=== PATIENT | female | born 1955 | race Caucasian/White ===

== ENCOUNTER → 2018-02-15 15:12 | Outpatient (CLI) | payer OTHER, SELFPAY ==
--- NOTE | 2018-02-15 15:17 | RAD_ITS ---
STUDY: X-RAY - RIGHT KNEE REASON FOR EXAM: Female, 62 years old. Pain TECHNIQUE: 4 view(s) of the knee. COMPARISON: None. FINDINGS: Normal visualized distal femur. Normal visualized proximal tibia and fibula. Normal proximal tibiofibular articulation. There is mild degenerative arthrosis of the medial femorotibial compartment. There is mild degenerative arthrosis of the lateral femorotibial compartment. There is mild degenerative arthrosis of the patellofemoral articulation. The soft tissue structures are unremarkable. RAD/Knee 4 or More Views IMPRESSION: Degenerative arthrosis. Electronically Signed: Andrew Fung MD at 16:01 EDT , Service support ,
== END ==
PROVIDERS: Family Provider Family Medicine; PCP Family Medicine; Referring Provider Family Medicine; Visit Provider Family Medicine
DX: M23.300 Other meniscus derangements, unspecified lateral meniscus, right knee (principal)
CPT/HCPCS: 73564

== ENCOUNTER → 2018-02-22 16:01 | Outpatient (CLI) | payer OTHER, SELFPAY ==
--- NOTE | 2018-02-22 16:28 | BI_ITS ---
MAMMOGRAPHY - BILATERAL SCREENING REASON FOR EXAM: Female, 62 years old. Routine annual screening examination. PERTINENT HISTORY: Aunt with breast cancer. Remote left stereotactic breast biopsy. TECHNIQUE: Digital bilateral breast jose (3D mammographic acquisition) in the CC and MLO projections. 2-D mediolateral oblique (MLO) and craniocaudad (CC) views of both breasts were obtained. CAD: Full Field Digital Mammography with Computer Added Detection was performed. COMPARISON: Comparison is made with prior examination dated May 14, 2016. FINDINGS: Breast Composition: The breasts are heterogeneously dense, which may obscure small masses. There are no dominant masses or suspicious calcifications. A tissue clip marker is seen in the deep mid medial portion of the left breast. Stable small bilateral axillary lymph nodes. No other significant abnormalities are identified. There has been no significant change since the prior study. BI/SCREENING MAMM (CAD), BILAT IMPRESSION: Stable bilateral screening mammogram. Yearly follow-up mammogram recommended. (A) ASSESSMENT CATEGORY: BIRADS Category 2: Benign. A letter regarding these results will be sent to the patient by the facility within 30 days. Approximately 10% of breast cancers are not detected by mammography. A normal mammogram should not delay biopsy of a clinically suspicious abnormality. [id number] Electronically Signed: Huey Vizcaino MD at 13:19 EDT Tel [phone], Service support ,
== END ==
PROVIDERS: Family Provider Family Medicine; PCP Family Medicine; Visit Provider Family Medicine
DX: Z12.31 Encounter for screening mammogram for malignant neoplasm of breast (principal)
CPT/HCPCS: 77063; 77067

== ENCOUNTER → 2018-02-25 08:45 | Outpatient (CLI) | payer OTHER, SELFPAY ==
--- NOTE | 2018-02-25 09:10 | MRI_ITS ---
STUDY: MRI RIGHT KNEE REASON FOR EXAM: Female, 62 years old. Right knee pain. TECHNIQUE: Standardized fat and water weighted pulse sequences were obtained in all 3 orthogonal planes. COMPARISON: X-ray February 15, 2018 FINDINGS: There is medial meniscus tear of the posterior horn and body, series 3 images 33/42 through 36/42. There is diffuse, greater than 50% thickness articular cartilage loss of the medial femorotibial compartment. There is mild osteoarthritic spur formation of the medial knee compartment. Normal medial collateral ligamentous complex (MCL). Normal distal semimembranosus, gracilis and semitendinosus tendons. There is lateral meniscus tear of the posterior horn adjacent to the meniscal root, series 3 images 17/42 and 18/42. Normal hyaline cartilage of the lateral femorotibial compartment. Normal lateral femoral condyle and tibial plateau. Normal proximal tibiofibular articulation. Normal lateral collateral (fibular) ligament. Normal popliteus tendon. Normal biceps femoris tendon. Normal anterior cruciate ligament (ACL). Normal posterior cruciate ligament (PCL). Normal congruent patellofemoral articulation. Normal hyaline cartilage of the patellofemoral compartment. Normal medial and lateral patellar retinaculum. Normal quadriceps tendon. Normal patellar tendon. Normal Hoffa's fat pad. There is a small volume joint effusion. There is a 5.5 cm popliteal cyst. The soft tissues are unremarkable. The otherwise visualized osseous structures are unremarkable. MRI/Lower Ext Joint Only (Routine) IMPRESSION: Medial meniscus tear. Lateral meniscus tear. Degenerative changes of the medial compartment. Joint effusion. Electronically Signed: Abiodun Xiao MD at 10:55 EDT , Service support ,
== END ==
PROVIDERS: Family Provider Family Medicine; PCP Family Medicine; Referring Provider Family Medicine; Visit Provider Family Medicine
DX: M23.300 Other meniscus derangements, unspecified lateral meniscus, right knee (principal)
CPT/HCPCS: 73721

== ENCOUNTER 2018-03-01 06:50 | Day surgery (SDC) | payer OTHER, SELFPAY ==
[2018-03-01 07:09] VITALS: BP 129/65; PULSE 90; RESP 16; TEMP 36.2; O2SAT 94; BMI 36.6
--- NOTE | 2018-03-01 07:42 | H&P.OPEN ---
Past Medical/Surgical History - Planned Operation Planned Operative Procedure/s: COLONOSCOPY Date of Operative Procedure: 03/01/18 Permit Signed: No S.O.S: No Is This Patient Having a Total Joint: No - Previous Hospitalizations/Surgeries HX of Surgeries: LEFT FOOT/BUNIONECTOMY. TONSILS CHILD. COLONOSCOPY 2007. BREAST BIOPSY 2011/LEFT. DENTAL IMPLANTS. 2016 LEFT CATARACT Any Problems With Anesthesia: No You/Your Family Experience Fever (Hyperthermia) With Anes: No Cholinesterase deficiency: No - Cardiovascular Hx Chest Pain within Last 2 months: No Hx of Irregular Heartbeat and/or Afib: No Hx Heart Attack: No Hx Congestive Heart Failure: No Hx Rheumatic Fever: No Hx Hypertension: No Hx Internal Defibrillator: No Hx Pacemaker: No Hx Cardiac Catheterization: No Hx Cardiac Surgery/Stents/Etc.: No Hx Stress Test: Yes - OVER 5 YRS AGO HX Edema: No Hx Pain in Legs when Walking/Leg Cramps: Yes - OCCAS LEG CRAMPS - Respiratory Chronic Cough: No HX of Shortness of Breath: No Hoarseness: No Hx Chronic Obstructive Pulmonary Disease (COPD): No Hx Asthma: No Hx Emphysema: No Hx Sleep Apnea: Yes - CPAP 2010 CPAP: Yes BIPAP: No Hx Oxygen Use at Home: No Hx Respiratory Tract Infection/Cold (presently): No Result (for STOP score): Positive Hx Smoking: Yes - QUIT Smoking Status: Former smoker - Gastrointestinal Hx Gastroesophageal Reflux: Yes Controlled With Meds: Yes - OMERPAZOLE Hx Gastrointestinal Disorders: Yes - IBS Hx Gastrointestinal Bleed: No Hx Ulcer: No Hx Hiatal Hernia: No Difficulty Chewing/Swallowing: No Recent Onset of Swallowing Problems: No Special diet followed at home: No Hx Unplanned Weight Loss of 20#: No HX Unplanned Weight Gain of 20#: No - Neurological Hx Seizures: No HX Syncope/Blackout Spells/Unconsciousness: No Hx CVA/Stroke: No Hx Transient Ischemic Attacks (TIA): No Hx Multiple Sclerosis: No Hx Parkinson's Disease: No Hx Head/Neck Injury: No Hx Headaches: No Hx Back Injury/Pain: No Recent Onset of Speech Difficulty: No Restless Legs: No Does patient have nerve stimulator: No Patient instructed to have device shut off: No Rep notified?: No - Blood Disorder Hx Leukemia: No Bleeding Tendencies: No Hx Deep Vein Thrombosis: No Hx High Cholesterol: No Blood Transmitted Disease: No Hx Hepatitis: No Hx Cirrhosis: No Hx Anemia: No Hx Blood Disorders: No - Reproduction : No Is Patient Lactating: No Hx Hysterectomy: No Hx Tubal Ligation: No Are You Post Menopause: Yes - Genitourinary Hx Renal Disease: No - Musculoskeletal Hx Arthritis: Yes - MILD,KNEE Hx Rheumatoid Arthritis: No Hx Gout: No Recent Onset of an Orthopedic Problem: Yes - KNEE,11/2017 - Endocrine Hx Diabetes: No Thyroid Disease: No Hx Steroid Therapy: No - Psycho/Social Hx Substance Use: No Hx Alcohol Use: Yes - 1 GLASS/MONTH Hx Anxiety: Yes - ON MED Hx Depression: No Mental Illness: No Hx Dementia: No - Miscellaneous Hx Cancer: No Recent Exposure to Contagious Disease: No Active MRSA: No Hx of C-Diff: No Any Loose Teeth: No - IMPLANTS/PERMANENT Allergies adhesive tape Allergy (Verified 02/27/18 11:27) Rash hydrocodone [From Vicodin] Adverse Reaction (Verified 02/27/18 11:48) Vomiting - Discharge Is Pt Admitted From a Care Home, or a Usp: No Who Could Help: After D/C, Where Do you Plan to Go: Return Home - From the PAT History Number of Risk Factors: 4 - Physical Exam General: Alert, Oriented x3, Cooperative, No apparent distress Lungs: Normal air movement Cardiovascular: Regular rate Abdomen: Soft, Non Tender, Non-Distended Extremities: No clubbing, No cyanosis, No edema Neurological: Cranial nerves II-XII grossly intact Psych/Mental Status: Normal Affect Vital Signs Temp Pulse Resp BP Pulse Ox 97.1 F L 90 16 129/65 H 94 03/01/18 07:09 03/01/18 07:09 03/01/18 07:09 03/01/18 07:09 03/01/18 07:09 Oxygen Delivery Method Room Air Weight: 207 lb 0.225 oz Body Mass Index (BMI) 36.6 Assessment/Plan 62-year-old female for screening colonoscopy, previous colonoscopy in 2007 patient remembers being told 10 years unsure the exact results whether she had any polyps, denies any family history of colon cancer Surgery Risks - Colonoscopy I discussed with the patient the risks of the procedure: Yes Risks Include but are not Limited To: Risks include but are not limited to: Bleeding, perforation requiring further surgery, inability to complete colonoscopy requiring barium enema. Patient and her no further questions at this time.
--- NOTE | 2018-03-01 08:00 | COLBX_PTH ---
PATIENT: BRENNA JIN LOC: EN U#:[id number] AGE/SX: 62/F ROOM: RE03/01/[address]: Dr. Evon Payne MD : 1955 BED: DIS: 03/01/2018 SPEC #: [id number] RECD: 03/01/18 10:00 STATUS: SANDRO REJung #: [id number] ASIM: 03/01/18 08:[address]: Evon Payne DEPT: SURGICAL PATHOLOGY RECD BY: Junito Lozano ENTERED: 03/01/18 10:13 SP TYPE: COLON BX OTHR DR: Dr. Gelacio Kahn DO Tissues: A - Descending colon B - Sigmoid colon biopsy C - Sigmoid colon biopsy D - Rectum, NOS Procedures: Surgery Specimen Level IV HEADER OPERATION: Colonoscopy PRE-OP DIAGNOSIS: Screening TISSUE SUBMITTED: A - Biopsy of descending colon polyp, B - Biopsy of sigmoid lesion, C - Biopsy of sigmoid polyp, D - Biopsy of rectal polyp MICROSCOPIC DIAGNOSIS A. Descending colon polyp, biopsy: Tubular adenoma. Pigmented laden macrophages consistent with melanosis coli. B. Sigmoid lesion, biopsy: Hyperplastic polyp. Pigmented laden macrophages consistent with melanosis coli. C. Sigmoid polyp, biopsy: Hyperplastic polyp. Pigmented laden macrophages consistent with melanosis coli. D. Rectal polyp, biopsy: Hyperplastic polyp. Pigmented laden macrophages consistent with melanosis coli. SJ:joanna 03/02/18 MICROSCOPIC DESCRIPTION Slides are reviewed. GROSS DESCRIPTION A - Received in fixative is one container labeled with the patient's name and designated biopsy of descending colon polyp. The specimen consists of one irregular fragment of light harding soft tissue that measures 0.4 x 0.3 x 0.1 cm. The specimen is totally submitted in one cassette. B - Received in fixative is one container labeled with the patient's name and designated biopsy of sigmoid lesion. The specimen consists of two irregular fragments of light harding soft tissue that in aggregate measure 0.4 x 0.3 x 0.1 cm. The specimen is totally submitted in one cassette. C - Received in fixative is one container labeled with the patient's name and designated biopsy of sigmoid polyp. The specimen consists of multiple irregular fragments of light harding soft tissue that in aggregate measure 1 x 0.5 x 0.1 cm. The specimen is totally submitted in one cassette. D - Received in fixative is one container labeled with the patient's name and designated biopsy of rectal polyp. The specimen consists of multiple irregular fragments of light harding soft tissue that in aggregate measure 0.5 x 0.5 x 0.1 cm. The specimen is totally submitted in one cassette. / OVI:joanna 03/01/18 TC:1 CPT: 26430 x4
[2018-03-01 08:47] VITALS: BP 106/69; BP 129/65; PULSE 75; RESP 16; TEMP 36.2; O2SAT 98
[2018-03-01 08:50] VITALS: BP 115/66; BP 129/65; PULSE 67; RESP 16; O2SAT 96
--- NOTE | 2018-03-01 08:51 | OP.ENDO_ITS ---
Patient Name: Francia Lopez Procedure Date: 03/01/2018 7:36 AM Date of : 1955 Age: 62 Procedure: Colonoscopy Indications: Screening for colorectal malignant neoplasm Providers: Evon Payne MD Referring MD: Evon Payne MD Medicines: Monitored Anesthesia Care Patient Profile: Last Colonoscopy: 10 years ago. Complications: No immediate complications. Procedure: Pre-Anesthesia Assessment: - Prior to the procedure, a History and Physical was performed, and patient medications and allergies were reviewed. The patient's tolerance of previous anesthesia was also reviewed. The risks and benefits of the procedure and the sedation options and risks were discussed with the patient. All questions were answered, and informed consent was obtained. Prior Anticoagulants: The patient has taken no previous anticoagulant or antiplatelet agents. ASA Grade Assessment: II - A patient with mild systemic disease. After reviewing the risks and benefits, the patient was deemed in satisfactory condition to undergo the procedure. After I obtained informed consent, the scope was passed under direct vision. Throughout the procedure, the patient's blood pressure, pulse, and oxygen saturations were monitored continuously. The pediatric colonoscope was introduced through the anus and advanced to the cecum, identified by the appendiceal orifice, ileocecal valve and palpation. The colonoscopy was performed without difficulty. The patient tolerated the procedure well. The quality of the bowel preparation was good. Scope In: 7:56:02 AM Scope Withdrawal Time 0 hours 28 minutes 45 seconds Scope Out: 8:41:39 AM Total Procedure Duration Time 0 hours 45 minutes 37 seconds Findings: Three sessile polyps were found in the rectum, sigmoid colon and descending colon. The polyps were 3 to 5 mm in size. These polyps were removed with a cold biopsy forceps. There was also a flat lesion that was removed in sigmoid with cold forceps. Resection and retrieval were complete. Diverticula were found in the sigmoid colon and descending colon. The retroflexed view of the distal rectum and anal verge was normal and showed no anal or rectal abnormalities. The perianal and digital rectal examinations were normal. Impression: - Three 3 to 5 mm polyps in the rectum, in the sigmoid colon and in the descending colon & flat mucosal lesion in sigmoid, removed with a cold biopsy forceps. Resected and retrieved. - Diverticulosis in the sigmoid colon and in the descending colon. - The distal rectum and anal verge are normal on retroflexion view. Recommendation: - Discharge patient to home. - High fiber diet. - Continue present medications. - Await pathology results. - Repeat colonoscopy in 3 - 5 years for surveillance based on pathology results. Procedure Code(s): --- Professional --- 23739, Colonoscopy, flexible; with biopsy, single or multiple Diagnosis Code(s): --- Professional --- Z12.11, Encounter for screening for malignant neoplasm of colon K62.1, Rectal polyp D12.5, Benign neoplasm of sigmoid colon D12.4, Benign neoplasm of descending colon K57.30, Diverticulosis of large intestine without perforation or abscess without bleeding CPT copyright 2017 [employer]. All rights reserved. The codes documented in this report are preliminary and upon him coder review may be revised to meet current compliance requirements. MD Evon Hardy MD 03/01/2018 8:50:28 AM This report has been signed electronically. Number of Addenda: 0 Note Initiated On: 03/01/2018 7:36 AM
[2018-03-01 08:55] VITALS: BP 118/95; BP 129/65; PULSE 66; RESP 16; O2SAT 95
[2018-03-01 09:00] VITALS: BP 129/65; BP 135/75; PULSE 63; RESP 16; O2SAT 95
[2018-03-01 09:05] VITALS: BP 129/65; BP 137/73; PULSE 60; RESP 16; TEMP 36.4; O2SAT 95
== END 2018-03-01 09:33 | disposition home or self-care (01) ==
LOC: EN 06:51 → AC 06:52
PROVIDERS: Family Provider Family Medicine; PCP Family Medicine; Referring Provider Surgery; Visit Provider Surgery
PROC: 0DJD8ZZ Inspection of Lower Intestinal Tract, Via Natural or Artificial Opening Endoscopic (ICD-10-PCS; CPT 45378; principal; 2018-03-01 07:55)
DX: Z12.11 Encounter for screening for malignant neoplasm of colon (principal); D12.4 Benign neoplasm of descending colon; K63.5 Polyp of colon; K62.1 Rectal polyp; K57.30 Diverticulosis of large intestine without perforation or abscess without bleeding; G47.30 Sleep apnea, unspecified; K21.9 Gastro-esophageal reflux disease without esophagitis; K58.9 Irritable bowel syndrome, unspecified; M17.10 Unilateral primary osteoarthritis, unspecified knee; F41.9 Anxiety disorder, unspecified; Z78.0 Asymptomatic menopausal state; Z79.899 Other long term (current) drug therapy; Z87.891 Personal history of nicotine dependence
CPT/HCPCS: 45380; 88305; J7120

== ENCOUNTER → 2020-03-26 12:27 | Outpatient (CLI) | payer MEDICARE, OTHER, SELFPAY ==
[2020-03-26 15:42] LABS: Vitamin D,25 Hydroxy 24.4 ng/mL
[2020-03-26 15:44] LABS: Albumin, Serum 3.7 g/dL (3.2-5.0); BUN 15 mg/dL (7-18); Calcium,Total 8.8 mg/dL (8.5-10.1); Chloride 105 mmol/L (98-107); Creatinine, Serum 0.88 mg/dL (0.55-1.02); EST Glomerular Filtration Rate 68 mL/min (>60); Est Glom Filt Rate - Afr Amer 82 mL/min (>60); Glucose 70 mg/dL (74-106); Magnesium 2.1 mg/dL (1.6-2.6); Phosphorus 2.5 mg/dL (2.5-4.9); Sodium Level 138 mmol/L (136-145)
== END ==
PROVIDERS: PCP Family Medicine; Referring Provider Student in an Organized Health Care Education/Training Program; Visit Provider Student in an Organized Health Care Education/Training Program
DX: M81.0 Age-related osteoporosis without current pathological fracture (principal)
CPT/HCPCS: 36415; 80069; 82306; 83735

== ENCOUNTER 2020-10-22 12:00 | Outpatient (RCR) | payer MEDICARE, OTHER, SELFPAY ==
--- NOTE | 2020-09-18 12:42 | HP.PTEVAL_ITS ---
Patient's Visit Information BRENNA JIN is a 65 year old F referred to Physical Therapy by Dr. Paul Harding MD with a diagnosis of L knee OA. Date of Evaluation: 09/18/20 Physical Therapist: Francis Sorto, DPT, OCS, CSCS - Visit Plan Frequency: 2-3x /Week Duration: 4-6 Weeks Plan: 2-3x/week for 4-6 weeks for water therapy for... 1. LE and core strength focussing hip ext adn abd. 2. stretch quads and ITB. 3. CV/calorie burning ex. Progress all to I as [employer] member with list as tolerates. - Subjective L knee started hurting two weeks ago. H/O R knee partial replacement last November. Things were good. 2 weeks ago got up on Tuesday and L knee hurt without reason. Does lift weights in her basement for her knee. No MRI, had xray which showed OA. Doctor gave an injection last and it really helped almost 100%. Still gets pain every now and then trasniently. Sleeps OK since injection but was up prior. Does not do alot in her day, treis to clean and lift in basement. Did a lot of volunteer prior to covid. Both hips hurt to walk, may need bursectomy. Has had PT in the past. Gained 8 #. avoids getting down on floor due to knees. has steps and sometimes does one at a time. - Pain L knee Pain Intensity (Out of 10): 0 Pain Intensity Range: 0, 6 Comment: 6 prior to injection. - Objective L medial knee minimally tender. Valgus at both knees in posture. Walsk normal without antalgia today. steps reciprocal today with one rail. Trasnfers I. 0- 110 L knee aROM, R knee is 0-120. SLR B without lag. no pain. quads adn ITB mod tight B, HS are good at 0 90/90 test. ankel and hip AROM WFL. reflexes 2/3 B patella and achilles. Sensation LE WNL tog ross lgiht touch. Strength quad 4-, HS 4, hip abd and ext 3+, flexion 4-, andkles 4+. Tender over gluts but not specifically on trochanteric bursa area R >L - Goals Goal 1:: Pt I appropriate water ex to minimize problems with knee adn hips Goal Time Frame: 4-6 Weeks Goal 2:: L knee pain maitain 0/10 pain with sleeping adn home activities Goal Time Frame: 4-6 Weeks Goal 3:: LEFS scroe 42/80 Goal Time Frame: 4-6 Weeks - Rehabilitation Potential Physical Therapy Diagnosis: L knee OA Rehabilitation Potential: Fair - Anticipated Interventions Patient/Client Instruction: Educate patient on: Condition, Plan of Care For the Purpose of:: To decrease pain, To improve muscle performance and motor function Therapeutic Exercise to Include: Strength training, Flexibilty training, In an aquatic setting, Active ROM For the Purpose of:: To decrease pain, To improve muscle performance and motor function, To improve ability of physical actions for home/community/work/leisure, To improve gait and locomotor functions Thank you for the opportunity to evaluate your patient. For Medicare and Medicare HMO plans, please review the plan of care and approve it. It will need to be FAXED BACK to us at [phone] for Medicare purposes. For Medicare only, by signing this I certify the plan of care. Please let me know if there are questions or concerns regarding this plan of care. Physician Signature: Date:
--- NOTE | 2020-10-17 13:54 | HP.PTREVAL_ITS ---
Dr. Paul Harding MD, It has been my pleasure to treat BRENNA JIN over the last 8 visits for L knee OA. Please see the progress note below for an update on the physical therapy plan of care! Subjective: Injection is wearing off. Water treats her well. Still in pain walking into [employer], better with cart but has to sit and rest a lot. Pain in knee this week to 0 at rest and walking 4/10. B hips also hurt for her. Objective/Function: 0-118 AROM B knees, tightness felt in hips ext rotation and stetch shown to jeremy. Walking without antalgia today, steps reciprocal with one rail. Overall more painful as she thinks shot is wearing off but hips more problematic than knee. Appropriate to cotninue 2 more weeks in pool and then recheck Plan Plan: 2 more weeks in water to cotninue ROM, strecht and strengthen B hips and knees and progress to I with list as she is a member here. Back to doctor if not better in two weeks or if continues to worsen. Goals Goal 1:: Pt I appropriate water ex to minimize problems with knee adn hips Goal Time Frame: 4-6 Weeks Goal Progress: Progressing Goal 2:: L knee pain maitain 0/10 pain with sleeping adn home activities Goal Time Frame: 4-6 Weeks Goal Progress: to 3/10 Goal 3:: LEFS scroe 42/80 Goal Time Frame: 4-6 Weeks Goal Progress: Progressing Anticipated Interventions Patient/Client Instruction: Educate patient on: Condition, Plan of Care For the Purpose of:: To decrease pain, To improve muscle performance and motor function Therapeutic Exercise to Include: Strength training, Flexibilty training, In an aquatic setting, Active ROM For the Purpose of:: To decrease pain, To improve muscle performance and motor function, To improve ability of physical actions for home/c ommunity/work/leisure, To improve gait and locomotor functions Please do not hesitate to contact me at [phone] by phone or if you have questions or concerns regarding this new plan of care! Sincerely, Francis Sorto, DPT, OCS, CSCS
--- NOTE | 2020-12-19 12:35 | HP.PT.NRP ---
BRENNA JIN was seen in my office for initial evaluation on 09/18/20. The following Plan of Care was established for this patient: Initial Frequency: 2-3x /Week Initial Duration: 4-6 Weeks Patient/Client Instruction: Educate patient on: Condition, Plan of Care For the Purpose of:: To decrease pain, To improve muscle performance and motor function Therapeutic Exercise to Include: Strength training, Flexibilty training, In an aquatic setting, Active ROM For the Purpose of:: To decrease pain, To improve muscle performance and motor function, To improve ability of physical actions for home/community/work/leisure, To improve gait and locomotor functions This patient was last seen in our office 10/22/20. Pertinent comments regarding their Physical therapy will appear below: Pt seen 9 visits of water therapy. Cancelled last 4 stating she was having an MRI. She was 40% better at her last recheck. She did nto reschedule or attend any further visits. at this point, it has been nearly two months and I will disocntinue due to nonattendance. At this point I will be discontinuing this patient from physical therapy. I would be happy to see this patient again in the future if found appropriate by the physician. Thank you! Francis Sorto, DPT, OCS, CSCS Balance/Gait/Functional tests - Balance/Special Test Scores Lower Extremity Functional Score: 40
== END 2020-10-22 19:00 | disposition home or self-care (01) ==
LOC: PT 12:00
PROVIDERS: PCP Student in an Organized Health Care Education/Training Program; Referring Provider Specialist; Visit Provider Specialist
DX: M17.12 Unilateral primary osteoarthritis, left knee (principal); E68 Sequelae of hyperalimentation; E66.8 Other obesity
CPT/HCPCS: 97113; 97161; 97164

== ENCOUNTER → 2020-11-04 12:33 | Outpatient (CLI) | payer MEDICARE, OTHER, SELFPAY ==
[2020-11-04 14:51] LABS: Absolute Lymphocyte Count 1.41 X10^3/uL (0.83-4.51); Absolute Neutrophil Count 4.5 X10^3/uL (2.0-7.7); Basophil# 0.06 X10^3/uL; Basophil% 0.9 % (0-1); Eosinophil# 0.18 X10^3/uL; Eosinophils% 2.7 % (0-5); Hemoglobin 13.3 g/dL (12.0-15.0); Lymphocyte # 1.41 X10^3/ul (0.83-4.51); Lymphocyte % 21.4 % (19-41); Mean Corp Hgb Conc 31.7 g/dL (32-36); Mean Corpuscular Hgb 27.4 pg (27.0-32.0); Mean Corpuscular Volume 86.4 fL (81-99); Mean Platelet Vol. 11.6 fl (6.2-12.0); Monocyte# 0.47 X10^3/uL; Monocyte% 7.1 % (0-10); NRBC Flagged by Analyzer 0 % (0-5); Neutrophil # 4.45 X10^3/uL (2.7-7.7); Neutrophil % 67.4 % (47-70); Platelet Count 281 K/mm3 (150-450); RBC Distribution Width CV 14.9 % (11.6-14.6); RBC Distribution Width SD 47.1 fl (35.1-43.9); Red Blood Count 4.86 M/mm3 (4.2-5.4); White Blood Count 6.6 K/mm3 (4.4-11.0)
[2020-11-04 15:12] LABS: ALB/GLOB Ratio 1.1 RATIO (0.9-2.4); AST(SGOT) 17 U/L (15-37); Alanine Aminotransfer ALT/SGPT 32 U/L (13-56); Albumin, Serum 3.8 g/dL (3.2-5.0); Alkaline Phosphatase 82 U/L (45-117); Anion Gap 6 (5-15); BUN 17 mg/dL (7-18); BUN/Creat Ratio 19.6 RATIO (10-20); Calcium,Total 8.9 mg/dL (8.5-10.1); Chloride 106 mmol/L (98-107); Cholesterol 234 mg/dL (200); Creatinine, Serum 0.87 mg/dL (0.55-1.02); EST Glomerular Filtration Rate 69 mL/min (>60); Est Glom Filt Rate - Afr Amer 84 mL/min (>60); Globulin 3.6 g/dL (2.2-4.2); Glucose 87 mg/dL (74-106); High Density Lipoprotein 56 mg/dL; Potassium 4.3 mmol/L (3.5-5.1); Protein, Total 7.4 g/dL (6.4-8.2); Sodium Level 140 mmol/L (136-145); Triglycerides 253 mg/dL; Very Low Density Lipoprotein 51 mg/dL (5-40)
[2020-11-04 15:47] LABS: Hepatitis C Antibody Non-Reactive (Nonreactive)
== END ==
PROVIDERS: PCP Student in an Organized Health Care Education/Training Program; Referring Provider Student in an Organized Health Care Education/Training Program; Visit Provider Student in an Organized Health Care Education/Training Program
DX: R07.89 Other chest pain (principal)
CPT/HCPCS: 36415; 80053; 80061; 85025; 86803

== ENCOUNTER → 2021-01-20 11:36 | Outpatient (CLI) | payer MEDICARE, OTHER, SELFPAY ==
[2021-01-20 15:13] LABS: Hematocrit 38.9 % (37-47); Hemoglobin 12.5 g/dL (12.0-15.0); Mean Corp Hgb Conc 32.1 g/dL (32-36); Mean Platelet Vol. 11.3 fl (6.2-12.0); Platelet Count 283 K/mm3 (150-450); RBC Distribution Width CV 14.6 % (11.6-14.6); RBC Distribution Width SD 46.4 fl (35.1-43.9); Red Blood Count 4.47 M/mm3 (4.2-5.4); White Blood Count 8.5 K/mm3 (4.4-11.0)
[2021-01-20 15:32] LABS: Anion Gap 5 (5-15); BUN 13 mg/dL (7-18); Chloride 107 mmol/L (98-107); Creatinine, Serum 0.68 mg/dL (0.55-1.02); EST Glomerular Filtration Rate 91 mL/min (>60); Est Glom Filt Rate - Afr Amer 110 mL/min (>60); Glucose 77 mg/dL (74-106); Potassium 4.1 mmol/L (3.5-5.1); Sodium Level 139 mmol/L (136-145)
== END ==
PROVIDERS: PCP Student in an Organized Health Care Education/Training Program; Referring Provider Specialist; Visit Provider Specialist
DX: Z01.818 Encounter for other preprocedural examination (principal)
CPT/HCPCS: 36415; 80048; 85027

== ENCOUNTER → 2021-02-13 13:59 | Outpatient (CLI) | payer MEDICARE, OTHER, SELFPAY ==
--- NOTE | 2021-02-13 14:01 | VDLE_ITS ---
Reason For Study: Pain in left lower leg RIGHT LEFT CFV is compressible, spontaneous, phasic, GSV is normal. competent and demonstrates normal CFV is compressible, spontaneous, phasic, augmentation. competent, and demonstrates normal Procedure augmentation. This is a venous duplex using B-mode, color FV is compressible, spontaneous, phasic, flow and spectral Doppler. competent and demonstrates normal Exam performed in department. augmentation. A preliminary report was called and/or faxed POP V is compressible, spontaneous, phasic, to Blanca @ Ortho. Kirti @ PCP. competent and demonstrates normal augmentation. PTV is compressible. Acute deep vein thrombosis is noted in the left distal T/P Trunk, PeroV and SoleusV. VL/Venous Duplex US, Unilateral Interpretation Summary Acute deep vein thrombosis is noted in the left tibio-peroneal trunk. Acute malgorzata p vein thrombosis is noted in the left peroneal vein. Acute deep vein thrombosis is noted in the lef t soleus vein. The remainder of the left lower extremity deep venous system is patent and compress ible. Valvular competence appears intact within the proximal deep venous system on the left . The left great saphenous vein appears patent and compressible segmentally. Ordering Physician: Joo Still Referring Physician: Scott Dickson Performed By: Citlali Palumbo RVT
== END ==
PROVIDERS: PCP Student in an Organized Health Care Education/Training Program; Referring Provider Physician Assistant Surgical; Visit Provider Physician Assistant Surgical
DX: M79.662 Pain in left lower leg (principal)
CPT/HCPCS: 93971

== ENCOUNTER → 2021-03-04 11:02 | Outpatient (CLI) | payer MEDICARE, OTHER, SELFPAY ==
--- NOTE | 2021-03-04 11:15 | VDLE_ITS ---
Reason For Study: F/U DVT Procedure LEFT This is a venous duplex using B-mode, color GSV is normal. flow and spectral Doppler. CFV is compressible, spontaneous, phasic, Exam performed in department. competent, and demonstrates normal The exam was diagnostic. augmentation. A preliminary report was called and/or faxed FV is compressible, spontaneous, phasic, to Dr. Dickson @ [phone] @ 12:00 pm. competent and demonstrates normal augmentation. POP V is compressible, spontaneous, phasic, competent and demonstrates normal augmentation. T/P Trunk is compressible. PTV is compressible. PER V is still NONCOMPRESSIBLE and dilated. NONVASCULAR structure noted in LT POP FOSSA area measuring approx. 1.67 x 3.57cm. VL/Venous Duplex US, Unilateral Interpretation Summary Acute deep vein thrombosis is noted in the left peroneal vein. The remainder of the left lower extremity deep venous system is patent and compressible. Valvular competence ap pears intact within the proximal deep venous system on the left . The left great saphenous vein jose c ears patent and compressible segmentally. A non-vascular structure is noted in the left poplite al space, measuring 1.67 cm x 3.57 cm. This may represent a popliteal cyst. Clinical correlation is advised. Ordering Physician: Scott Dickson Referring Physician: Scott Dickson Performed By: Loreto Scales, EDELMIRA, RVT
== END ==
PROVIDERS: PCP Student in an Organized Health Care Education/Training Program; Referring Provider Student in an Organized Health Care Education/Training Program; Visit Provider Student in an Organized Health Care Education/Training Program
DX: I82.409 Acute embolism and thrombosis of unspecified deep veins of unspecified lower extremity (principal)
CPT/HCPCS: 93971

== ENCOUNTER → 2021-04-15 14:55 | Outpatient (CLI) | payer MEDICARE, OTHER, SELFPAY ==
--- NOTE | 2021-04-15 14:58 | BI_ITS ---
MAMMOGRAPHY - BILATERAL SCREENING REASON FOR EXAM: Female, 65 years old. Routine annual screening examination. PERTINENT HISTORY: Grandmother with breast cancer. Aunt with breast cancer. Prior left breast biopsy. TECHNIQUE: Digital bilateral breast juanito (3D mammographic acquisition) in the CC and MLO projections. 2-D mediolateral oblique (MLO) and craniocaudad (CC) views of both breasts were obtained. CAD: Full Field Digital Mammography with Computer Added Detection was performed. COMPARISON: Comparison is made with prior study dated 02/22/2018. FINDINGS: Breast Composition: The breasts are heterogeneously dense, which may obscure small masses. There are no dominant masses or suspicious calcifications. A tissue clip marker is once again seen in the deep central medial portion of the left breast. Stable benign-appearing bilateral axillary lymph nodes. No other significant abnormalities are identified. There has been no significant change since the prior study. BI/SCRN MAMM (CAD)W/JUANITO BILAT IMPRESSION: Stable bilateral screening mammogram. Yearly follow-up mammogram recommended. (A) ASSESSMENT CATEGORY: BIRADS Category 2: Benign. A letter regarding these results will be sent to the patient by the facility within 30 days. Approximately 10% of breast cancers are not detected by mammography. A normal mammogram should not delay biopsy of a clinically suspicious abnormality. [id number] Electronically Signed: Huey Vizcaino MD at 15:35 EST , Service support ,
== END ==
PROVIDERS: PCP Student in an Organized Health Care Education/Training Program; Referring Provider Student in an Organized Health Care Education/Training Program; Visit Provider Student in an Organized Health Care Education/Training Program
DX: Z12.31 Encounter for screening mammogram for malignant neoplasm of breast (principal)
CPT/HCPCS: 77063; 77067

== ENCOUNTER → 2021-04-16 07:14 | Outpatient (CLI) | payer MEDICARE, OTHER, SELFPAY ==
--- NOTE | 2021-04-16 07:16 | CT_ITS ---
STUDY: LOW DOSE CT LUNG CANCER SCREENING REASON FOR EXAM: Female, 65 years old. FORMER SMOKER RADIATION DOSAGE (If Supplied By Facility): CTDIvol = ( 14.11 ) mGy, DLP = ( 1234.24 ) mGycm TECHNIQUE: No contrast was administered. Low dose technique was utilized (average mAS-38 and kVp 120). 1.25 mm axial source images with a slice interval of 1.25-mm were reconstructed in lung windows. 2.5 mm axial source images with a slice interval of 2.5-mm were reconstructed in lung windows. 5.0 mm axial source images with a slice interval of 5.0-mm were reconstructed in soft tissue windows. Nodule measured using lung windows on PACS and/or independent workstation with automated measurement of minimum and maximum diameter. Nodule measurement reported as average diameter rounded to the nearest whole number. Growth is defined as an increase ins size of greater than 1.5 mm. COMPARISON: None. NODULES: No suspicious nodules are seen. Emphysema: Hyperinflation. Emphysematous changes. Mild degree of dependent atelectasis and/or scarring at the lung bases. Endobronchial lesion: Unremarkable Aorta: Minimal atherosclerotic plaque formation of the aortic arch. Coronary arteries: Minimal coronary artery calcification. Mediastinal nodes: Small benign-appearing mediastinal lymph nodes. Other chest and abdominal findings: CT/Low Dose CT Lung Screening IMPRESSION: Lung-RADS category 2 - Continue annual screening with LDCT in 12 months. IMPORTANT NOTES FOR USE: ACR Lung-RADS Version 1.1 Assessment Categories Release Date: 2018 Category: Coded 0-4 bases on nodule(s) with highest degree of suspicion. Negative screen is defined as categories 1 and 2; a positive screen is defined as categories 3 and 4. Category 3 and 4A nodules that are unchanged on interval CT should be coded as category 2, and individuals returned to screening in 12 months. Category 4X: Category 3 or 4 nodules with additional imaging findings that increase the suspicion of lung cancer, such as spiculation, GGN that doubles in size in 1 year, enlarged lymph notes, etc. Category Modifiers: S (significant finding unrelated to lung cancer) Electronically Signed: Huey Vizcaino MD at 10:34 EST , Service support ,
--- NOTE | 2021-04-16 07:24 | CT_ITS ---
STUDY: CT ABDOMEN AND PELVIS WITH CONTRAST REASON FOR EXAM: Female, 65 years old. EPIGASTRIC/ABD PAIN RADIATION DOSAGE (If Supplied By Facility): CTDIvol = ( 14.11 ) mGy, DLP = ( 1234.24 ) mGycm TECHNIQUE: Transaxial images were obtained from the dome of the diaphragm to the symphysis pubis without oral contrast. IV 100mL Isovue-370 was administered. Sagittal and coronal images were reconstructed. Individualized dose optimization techniques were used for this CT. COMPARISON: None. FINDINGS: Minimal degree of dependent bibasilar atelectasis. The visualized portions of the heart are within normal limits. There is decreased attenuation of the liver consistent with steatosis. Normal gallbladder and extrahepatic biliary system. Normal spleen. Normal pancreas. Normal bilateral adrenal glands. Normal right kidney. Normal left kidney. There is a small hiatal hernia. Normal small intestine. There are multiple colonic diverticula consistent with diverticulosis. The appendix is visualized and appears normal. There is scattered atherosclerotic calcification of the abdominal aorta, without a demonstrated aneurysm. Normal inferior vena cava. Normal retroperitoneum. Normal urinary bladder. There is a small umbilical hernia containing fat. Small left inguinal hernia containing There are diffuse degenerative changes of the visualized lumbar spine. CT/Abdomen/Pelvis WITH Contrast IMPRESSION: Fatty infiltration of the liver. Scattered sigmoid diverticula. Small umbilical hernia and left inguinal hernia containing fat. Electronically Signed: Huey Vizcaino MD at 10:24 EST , Service support ,
== END ==
PROVIDERS: PCP Student in an Organized Health Care Education/Training Program; Referring Provider Student in an Organized Health Care Education/Training Program; Visit Provider Student in an Organized Health Care Education/Training Program
DX: Z87.891 Personal history of nicotine dependence (principal)
CPT/HCPCS: 71271; 74177; Q9967

== ENCOUNTER 2021-07-09 14:00 | Outpatient (RCR) | payer MEDICARE, OTHER, SELFPAY ==
--- NOTE | 2021-06-01 15:20 | HP.PTEVAL ---
Patient's Visit Information BRENNA JIN is a 66 year old F referred to Physical Therapy by Dr. Paul Harding MD with a diagnosis of Bilateral Hip Bursitis. Date of Evaluation: 06/01/21 Physical Therapist: Jacquie Wynn DPT - Visit Plan Frequency: 2-3x /Week Duration: 3 Weeks Plan: Aquatic Therapy: Focus on LE and core strength/stabilization - Subjective Both hips are bothering her since 2009- she has had x-rays and been to specialists and they think she is okay. She has had injections and PT (aquatic) which helped a little bit. She has had a right partial knee replacement and left meniscal clean out and ended up with blood clots. The hips have just progressively gotten worse. She has some arthritis and he wants to send her to PT. She is going to [facility] [place] at the end of May- but she is worried about how much walking she is going to have to do. She is hopes to have some more injections or Cortisone to get her through the trip. She has had an MRI but is waiting for the results. She is having bilateral hip pain- since the last appt she has started having pain that travels down the left lower extremity. She feels like stretching helped but its not really helping anymore. Worst: 12/23 Agg: going up steps, standing, walking, longer strides. Eases: medication from her knee surgery, Advil Best:07/23. Describes the pain as dull and achy. No N/T in the LE. Sleep: disturbed- cant lay on her sides so she has to sleep on her belly and back. She is not active- she sits most of the day. She was thrown off a horse in high school and has had pain on/off. Work: no. PMHx/Meds: see chart. - Objective Posture: FH, RS, can correct with verbal and tactile cues but does not maintain. Gait: decreased cheryl and short stride length. HR/TR: able with discomfort. SLS: requires UE and has moderate hip drop. Sensation: WNL to gross touch bilateral LE. ROM: WFL in all planes of the lumbar spine and LE with increased discomfort with IR/ER bilateral hips right>left. Strength: core: poor, Hip: 4-/5 throughout, Knee: 4/5, Ankle: 5/5. Flex: HS: mod Gastroc: mod Solues: moderate. Palpation: tender along gluts, lumbar parapsinals, and down the ITBand - Special Tests R Hip Scour: Positive R Hip CHINTAN - Intraarticular Pathology: Positive R Hip Trendelenberg - Glut Medius: Positive L Hip Scour: Positive L Hip CHINTAN - Intraarticular Pathology: Positive L Hip Trendelenberg - Glut Medius: Positive - Balance/Special Test Scores Lower Extremity Functional Score: 23 - Goals Goal 1:: Patient will be I with HEP and progression Goal Time Frame: 4-6 Weeks Goal 2:: Patient will asc/desc 8 recip with 1 HR with good control Goal Time Frame: 4-6 Weeks Goal 3:: Patient will ambulate >300 feet with a normalized gait pattern Goal Time Frame: 4-6 Weeks Goal 4:: Patient will maintain proper posture t/o tx session to demo increased core s/s Goal Time Frame: 4-6 Weeks - Rehabilitation Potential Physical Therapy Diagnosis: Patient presents with hypomobility- she has decreased LE and core strength/stabilization, flex and muscular endurance leading to poor posture and increased pain with ADL's. Rehabilitation Potential: Good - Anticipated Interventions Patient/Client Instruction: Educate patient on: Benefits of Fitness Program Therapeutic Exercise to Include: Strength training, Endurance training, Balance training, Coordination, Agility training, Body mechanics, Postural training, Flexibilty training, Gait and locomotor training, Neuromotor development, In an aquatic setting, Dynamic Lumbar Stabilization, Scapular Strength/Stabilization For the Purpose of:: To improve muscle performance and motor function Thank you for the opportunity to evaluate your patient. For Medicare and Medicare HMO plans, please review the plan of care and approve it. It will need to be FAXED BACK to us at [phone] for Medicare purposes. For Medicare only, by signing this I certify the plan of care. Please let me know if there are questions or concerns regarding this plan of care. Physician Signature: Date:
--- NOTE | 2021-10-29 14:07 | HP.PT.NRP ---
BRENNA R DAVIN was seen in my office for initial evaluation on 06/01/21. The following Plan of Care was established for this patient: Initial Frequency: 2-3x /Week Initial Duration: 3 Weeks Patient/Client Instruction: Educate patient on: Benefits of Fitness Program Therapeutic Exercise to Include: Strength training, Endurance training, Balance training, Coordination, Agility training, Body mechanics, Postural training, Flexibilty training, Gait and locomotor training, Neuromotor development, In an aquatic setting, Dynamic Lumbar Stabilization, Scapular Strength/Stabilization For the Purpose of:: To improve muscle performance and motor function This patient was last seen in our office . Pertinent comments regarding their Physical therapy will appear below: Patient has not attended PT in over 30 days- appropriate to be d/c and return to MD for further evaluation as needed. At this point I will be discontinuing this patient from physical therapy. I would be happy to see this patient again in the future if found appropriate by the physician. Thank you! RAMANA YooT Balance/Gait/Functional tests - Balance/Special Test Scores Lower Extremity Functional Score: 23
== END 2021-07-09 19:00 | disposition home or self-care (01) ==
LOC: PT 14:00
PROVIDERS: PCP Student in an Organized Health Care Education/Training Program; Referring Provider Specialist; Visit Provider Specialist
DX: M70.72 Other bursitis of hip, left hip (principal); M70.71 Other bursitis of hip, right hip
CPT/HCPCS: 97113; 97162

== ENCOUNTER → 2021-09-22 | Outpatient (CLI) | payer MEDICARE, OTHER, SELFPAY | END | disposition home or self-care (01) | LOC: SL 20:37 | PROVIDERS: PCP Student in an Organized Health Care Education/Training Program; Visit Provider Student in an Organized Health Care Education/Training Program | DX: G47.33 Obstructive sleep apnea (adult) (pediatric) (principal) | CPT/HCPCS: 95811 ==

== ENCOUNTER 2022-07-30 08:09 | Outpatient (CLI) | payer MEDICARE, OTHER, SELFPAY ==
[2022-07-30 09:59] LABS: Hematocrit 42.9 % (37-47); Hemoglobin 13.3 g/dL (12.0-15.0); Mean Corpuscular Hgb 27.6 pg (27.0-32.0); Mean Platelet Vol. 11.6 fl (6.2-12.0); Platelet Count 254 K/mm3 (150-450); RBC Distribution Width CV 14.7 % (11.6-14.6); RBC Distribution Width SD 48.8 fl (35.1-43.9); Red Blood Count 4.82 M/mm3 (4.2-5.4); White Blood Count 6.4 K/mm3 (4.4-11.0)
[2022-07-30 10:13] LABS: ALB/GLOB Ratio 1.1 RATIO (0.9-2.4); AST(SGOT) 16 U/L (15-37); Alanine Aminotransfer ALT/SGPT 28 U/L (13-56); Albumin, Serum 3.7 g/dL (3.2-5.0); Alkaline Phosphatase 63 U/L (45-117); Anion Gap 10 (5-15); BUN 39 mg/dL (7-18); Calcium,Total 9.1 mg/dL (8.5-10.1); Chloride 106 mmol/L (98-107); Cholesterol 120 mg/dL (200); Creatinine, Serum 0.91 mg/dL (0.55-1.02); EST Glomerular Filtration Rate 66 mL/min (>60); Est Glom Filt Rate - Afr Amer 79 mL/min (>60); Globulin 3.3 g/dL (2.2-4.2); Glucose 130 mg/dL (74-106); High Density Lipoprotein 51 mg/dL; Potassium 4.4 mmol/L (3.5-5.1); Sodium Level 140 mmol/L (136-145); Triglycerides 137 mg/dL; Very Low Density Lipoprotein 27 mg/dL (5-40)
[2022-07-30 10:16] LABS: Hemoglobin A1c 5.8 % (3.8-5.6)
[2022-07-30 10:18] LABS: Microalbumin,Random Urine 9.2 mg/L (NO RANGE EST.)
[2022-07-30 10:48] LABS: Hepatitis C Antibody Non-Reactive (Nonreactive)
== END 2022-07-30 23:59 | disposition home or self-care (01) ==
LOC: MTLAB 08:11
PROVIDERS: PCP Student in an Organized Health Care Education/Training Program; Referring Provider Student in an Organized Health Care Education/Training Program; Visit Provider Student in an Organized Health Care Education/Training Program
DX: Z01.818 Encounter for other preprocedural examination (principal); I10 Essential (primary) hypertension; Z11.59 Encounter for screening for other viral diseases; R73.01 Impaired fasting glucose
CPT/HCPCS: 36415; 80053; 80061; 82043; 82570; 83036; 85027; 86803

== ENCOUNTER → 2022-08-16 | Outpatient (CLI) | payer MEDICARE, OTHER, SELFPAY ==
--- NOTE | 2022-08-16 10:33 | VDLE_ITS ---
Reason For Study: LEG PAIN RIGHT LEFT CFV is compressible, spontaneous, phasic, GSV is normal. competent and demonstrates normal CFV is compressible, spontaneous, phasic, augmentation. competent, and demonstrates normal Procedure augmentation. This is a venous duplex using B-mode, color FV is compressible, spontaneous, phasic, flow and spectral Doppler. competent and demonstrates normal Exam performed in department. augmentation. The exam was diagnostic. POP V is compressible, spontaneous, phasic, A preliminary report was called and/or faxed competent and demonstrates normal to Dr. Kraft office. augmentation. T/P Trunk is compressible. PTV is compressible. LT PerV is compressible. VL/Venous Duplex US, Unilateral Interpretation Summary Deep veins of the left lower extremity are patent and compressible segmentally. There is no evidence of left lower extremity deep vein thrombosis. The left great saphenous vein jose c ears patent and compressible segmentally. Ordering Physician: Paul Harding Referring Physician: Scott Dickson Performed By: Rolo Grace RVT
== END | disposition home or self-care (01) ==
LOC: CVS 10:31
PROVIDERS: PCP Student in an Organized Health Care Education/Training Program; Visit Provider Specialist
DX: M79.662 Pain in left lower leg (principal); Z96.652 Presence of left artificial knee joint
CPT/HCPCS: 93971

== ENCOUNTER 2022-09-08 08:48 | Outpatient (RCR) | payer MEDICARE, OTHER, SELFPAY ==
[2022-09-08 09:28] VITALS: BP 108/67; PULSE 77; RESP 18; TEMP 36.1
--- NOTE | 2022-09-08 11:32 | PCM.WC.HP ---
History of Present Illness Date of Service: 09/08/22 Chief Complaint: Follow-up on the left buttocks cheek decubitus ulcer stage II History of Wound: Recent knee surgery has been sedentary and developed a little sore on her buttocks. Appears scabbed but has lifted on the edges we will take that off and start routine dressing changes. Patient is currently on an antibiotic from her regular doctor [facility] Home Medications Daily Defense 1 cap PO QHS SUPPLEMENT 02/27/18 [History Last Taken Unknown] Super Collagen Plus C 2 cap PO QHS SUPPLEMENT 02/27/18 [History Last Taken Unknown] calcium carbonate 500 mg-vitamin D3 15 mcg (600 unit) tablet 2 ea PO QHS SUPPLEMENT 02/27/18 [History Last Taken Unknown] cinnamon bark 500 mg capsule 500 mg PO QHS SUPPLEMENT 02/27/18 [History Last Taken Unknown] escitalopram oxalate 20 mg tablet 20 mg PO QHS ANXIERY 02/27/18 [History Last Taken Unknown] glucosamine ZXj-V8-Fofxouurz ashley 1,500 mg-400 unit-100 mg tablet (Glucosamine Daily Complex) 2 ea PO QHS SUPPLEMENT 02/27/18 [History Last Taken Unknown] omeprazole 20 mg capsule,delayed release 20 mg PO QHS GERD 02/27/18 [History Last Taken Unknown] Allergy/AdvReac Type Severity Reaction Status Date / Time adhesive tape Allergy Rash Verified 02/27/18 11:27 hydrocodone [From Vicodin] AdvReac Vomiting Verified 02/27/18 11:48 Social History Smoking Status: Never smoker ROS Constitutional Constitutional: Reports systems reviewed and no addt'l complaints, except as documented Eyes Eyes: Reports systems reviewed and no addt'l complaints, except as documented ENT HEENT: Reports systems reviewed and no addt'l complaints, except as documented Cardiovascular Cardiovascular: Reports systems reviewed and no addt'l complaints, except as documented Respiratory/Chest Respiratory/Chest: Reports systems reviewed and no addt'l complaints, except as documented Gastrointestinal Gastrointestinal: Reports systems reviewed and no addt'l complaints, except as documented Genitourinary Genitourinary: Reports systems reviewed and no addt'l complaints, except as documented Musculoskeletal Musculoskeletal: Reports systems reviewed and no addt'l complaints, except as documented Integumentary Integumentary: Reports wounds and other Details: Scabbed sore on the left buttocks cheek very superficial no depth Neurologic Neurologic: Reports systems reviewed and no addt'l complaints, except as documented Psychiatric Psychiatric: Reports systems reviewed and no addt'l complaints, except as documented Endocrine Endocrinology: Reports systems reviewed and no addt'l complaints, except as documented Hematologic/Lymphatic Hematologic/Lymphatic: Reports systems reviewed and no addt'l complaints, except as documented Allergic/Immunologic Allergic/Immunologic: Reports systems reviewed and no addt'l complaints, except as documented Vital Signs Vital Signs Vital Signs: 09/08/22 09:28 Temperature 97 F L Temperature Source Temporal Pulse Rate 77 Respiratory Rate 18 Blood Pressure 108/67 Blood Pressure Mean 80 Blood Pressure Source Monitor Blood Pressure Position Semi-Fowlers Blood Pressure Location Left Arm Physical Exam Const oriented x3 General Appearance: cooperative Exam Limitations: no limitations HEENT normocephalic Eyes PERRL Neck full ROM Resp normal respiratory effort Effort and Inspection: able to speak in complete sentences Auscultation: clear to auscultation bilaterally Cardio regular rate and regular rhythm Palpation: normal PMI Rate: regular rate Rhythm: regular rhythm GI Auscultation: normoactive bowel sounds Palpation: soft and no hepatosplenomegaly Back/Spine Thoracic Spine / Upper Back: normal to inspection Lumbar Spine / Lower Back: normal to inspection Pelvis: buttocks abnormal left (Open wound scabbed left buttocks) left Extremity normal to inspection Skin General Skin Exam: turgor decreased; Negative for no breakdown Wounds: wounds noted Wound Narrative: Left buttocks scabbed wound with some erythema around the edge partially lifted Neuro oriented x3 Psych Appearance: grossly normal Speech: normal speech Thought Content: normal thought content Judgement: judgement good Debridement Note Debridement Note Wound debrided: Left buttocks decubitus ulcer Laterality: Left Type of Debridement: Excisional debridement Anesthesia Used: 5% Lidocaine Gel Depth: Down to and including healthy tissue Percentage of wound debrided: 100 Instrument Used: 5mm curette Tissue Removed: Devitalized tissue fibrin Severity: Limited To Skin Breakdown Amount of bleeding with debridement: Mild Bleeding Controlled with: Compression and gauze Patient tolerated procedure: Patient tolerated procedure well Post-Debridement Measurements and Additional Note: Post-Debridement Measurements/Treatment AURELIANO - Nurse 1 - General Ulcer Assessment Start: 09/08/22 09:23 Freq: Status: Active Protocol: CHEYEXT Activity Type Activity Date Activity User E-sign Co-sign Detail Recorded Client Recorded Date Recorded By Document 09/08/22 09:28 RB [id number] 09/08/22 09:35 RB Edit Result 09/08/22 09:28 RB (1) [id number] 09/08/22 09:37 RB (1) Preferred language => [place] Jawbone Breaker Required => No Able to Read => Yes Able to Write => Yes Communication Tools => None Right Hearing Abillity => Normal Left Hearing Abillity => Normal Visual Assistive Devices => Glasses Preferences => Verbal,Written, => Demonstration Barriers to Learning => None Readiness To Learn => Good Willingness to Engage in Self Management => Med Activies Readiness to Engage in Self Management => Med Activities Anxiety Level => Calm Cooperation => Cooperative Perception => Coherent Interest in Health Problem => Asks Questions Education Importance => Acknowledges Need Does Patient Smoke tobacco or other => No substances Smoking Status => Never smoker Is Patient Diabetic => Yes Recent Decline in Ability to Perform => Denies Any => Declines Cultural/Buddhist Needs that may affect => No Treatment Plan Would you allow our hospital gliding pilot instructor to => No meet you for the purpose of spiritual/ emotional support? Biomedical Engineering Technician to contact place [facility] => No *Welcome to the Wound Center - Person Taught => Patient,Family - Teaching Method => Discussion - Response to teaching => Verbalize => understanding 09/08/22 09:28 - Today's Visit Information Type of service Follow-up Visit (Physician/FARM TRACTOR MECHANIC ) Arrival Mode Ambulatory Transfer Assistance None Patient Identification Verified (Name & Yes ) Patient Requires Transmission-Based No Precautions Vital Signs Temperature (97.8 F-99.1 F) 97 F L Temperature Source Temporal Pulse Rate (60-100) 77 Pulse Location Monitor Respiratory Rate (12-18) 18 Respiratory rate source Observation Blood Pressure (90/60-120/80) 108/67 Blood Pressure Mean 80 Source Monitor Position Semi-Fowlers Blood Pressure Location Left Arm Pain Scale: 0-10 Numeric Is Patient Pain Free? Yes Communication Assessment Preferred language Scottish Jawbone Breaker Required No Able to Read Yes Able to Write Yes Communication Tools None Right Hearing Abillity Normal Left Hearing Abillity Normal Visual Assistive Devices Glasses Teaching Assessment Preferences Verbal,Written, Demonstration Barriers to Learning None Readiness To Learn Good Willingness to Engage in Self Management Med Activies Readiness to Engage in Self Management Med Activities Anxiety Level Calm Cooperation Cooperative Perception Coherent Interest in Health Problem Asks Questions Education Importance Acknowledges Need Does Patient Smoke tobacco or other No substances Smoking Status Never smoker Is Patient Diabetic Yes Functional Assessment Recent Decline in Ability to Perform Denies Any Declines Culture/Buddhist/Biomedical Engineering Technician Cultural/Buddhist Needs that may affect No Treatment Plan Would you allow our hospital gliding pilot instructor to No meet you for the purpose of spiritual/ emotional support? Biomedical Engineering Technician to contact place of [facility] No Teaching: Wound Center *Welcome to the Wound Center -Person Taught Patient,Family -Teaching Method Discussion -Response to teaching Verbalize understanding AURELIANO - Nurse 1 - General Ulcer Measurement Start: 09/08/22 09:23 Freq: Status: Active Protocol: Activity Type Activity Date Activity User E-sign Co-sign Detail Recorded Client Recorded Date Recorded By Document 09/08/22 09:28 QUINTEN [id number] 09/08/22 09:35 RB 09/08/22 09:28 Wound Center Nurse 1 1. L buttock -Combined with other wound No -Current Size (cm) - Length 0.1 -Current Size (cm) - Width 0.1 -Current Size (cm) - Depth 0.1 -Total Square Cm 0.01 -Photo Taken Yes -Tunneling No -Undermining/Tunneling No -Circular Undermining No -Exudate Amt Medium -Exudate Type Serosanguineous -Wound Margin Distinct, Outline Attached -Granulation Amt Medium (34-66%) -Granulation Quality [place] -Slough/Fibrin Yes -Necrosis Amt Medium (34-66%) -Necrotic Tissue Type Adherent Slough -Structure Exposed N/A -Texture (Megan-wound Skin Appearance) Assessed -Moisture (Megan-wound Skin Appearance) Assessed -Color (Megan-wound Skin Appearance) Assessed -Temperature (Megan-wound Skin No Abnormality Appearance) (Pt Warm) -Tenderness on Palpation (Megan-wound No Skin Appearance) -Ulcer Cleansing Wound Cleanser -Foul Odor after Cleansing No -Anesthetic Used 5% Lidocaine Gel AURELIANO - Nurse 2 - General Ulcer CM Notes Start: 09/08/22 09:23 Freq: Status: Active Protocol: Activity Type Activity Date Activity User E-sign Co-sign Detail Recorded Client Recorded Date Recorded By Document 09/08/22 09:45 MW [id number] 09/08/22 09:47 MW 09/08/22 09:45 Wound Center Nurse 2 -Time 09:46 -Correct Patient Yes -Correct Side, Site, Position Yes -Correct Procedure Yes -Procedure Performed Yes -Type of Procedure Debridement -Clinical Debridement Subcutaneous -Tissue Removed Subcutaneous -Post Debridement (cm) - Length 1.5 -Post Debridement (cm) - Width 0.7 -Post Debridement (cm) - Depth 0.1 -Total Square (Post) (cm) 1.05 -Area of Debridement (cm) - Length 1.5 -Area of Debridement (cm) - Width 0.7 -Total Square (Area) (cm) 1.05 -Tunneling No -Undermining/Tunneling No -Circular Undermining No -Wound/Ulcer Outcome Not Healed -Ulcer Cleansing Rinsed/ Irrigated with Saline -Foul Odor after Cleansing No -Bioengineered Tissue No -Bleeding Controlled with Pressure -Treatment Response Procedure Tolerated Well -Offloading No -Debridement - Subq, 1st 20sq cm Yes Pain Scale: 0-10 Numeric Is Patient Pain Free? Yes - Nurse 3 - General Ulcer D/C NN Start: 09/08/22 09:23 Freq: Status: Active Protocol: Activity Type Activity Date Activity User E-sign Co-sign Detail Recorded Client Recorded Date Recorded By Document 09/08/22 09:59 RB [id number] 09/08/22 10:00 RB 09/08/22 09:59 Wound Care Center Nurse 3 1. L buttock -Ulcer Cleansing Rinsed/ Irrigated with Saline -Primary Dressing Applied Mepilex Border -Other Dressing xeroform -Mepilex Border 1 Treatment Response Procedure Tolerated Well Pain Scale: 0-10 Numeric Is Patient Pain Free? Yes Teaching: Wound Center Dressing Your Wound -Person Taught Patient -Teaching Method Discussion, Demonstration -Response to teaching Verbalize understanding WC - Visit Discharge Discharge Condition Stable Ambulatory Status Ambulatory Transportation Private Auto Medication Reconcilliation completed & No provided to patient/care provider Clinical Summary of Care Provided Yes Assessment/Plan Assessment/Plan (1) Decubitus ulcer of left buttock, stage 2: CODE(S): L89.322 - Pressure ulcer of left buttock, stage 2 PLAN: Wash left buttocks with antibacterial soap apply Xeroform and a foam dressing over top every day Follow-up in 1 week (2) Skin turgor poor: CODE(S): R23.8 - Other skin changes
--- NOTE | 2022-09-27 13:43 | WC ---
[facility]08[facility]22 [facility]
== END 2022-09-12 23:59 | disposition home or self-care (01) ==
LOC: WC 08:48
PROVIDERS: PCP Student in an Organized Health Care Education/Training Program; Referring Provider Student in an Organized Health Care Education/Training Program; Visit Provider Nurse Practitioner
DX: L89.322 Pressure ulcer of left buttock, stage 2 (principal); R23.8 Other skin changes
CPT/HCPCS: 11042; 99203; G0463

== ENCOUNTER 2022-09-15 09:26 | Outpatient (RCR) | payer MEDICARE, OTHER, SELFPAY ==
[2022-09-13 00:52] VITALS: BP 108/67; PULSE 77; RESP 18; TEMP 36.1
[2022-09-15 10:01] VITALS: BP 154/53; PULSE 66; RESP 18; TEMP 36.1
--- NOTE | 2022-09-15 11:19 | PN.PCM_ITS ---
History of Present Illness Date of Service: 09/15/22 Chief Complaint: Follow-up on the left buttocks cheek decubitus ulcer stage II History of Wound: Recent knee surgery has been sedentary and developed a little sore on her buttocks. Appears scabbed but has lifted on the edges we will take that off and start routine dressing changes. Patient is currently on an antibiotic from her regular doctor Progress of Wound: The wound has healed on her left buttocks cheek patient will be discharged from the wound center and can follow-up as needed Subjective Subjective Patient is very pleased with outcomes Objective Data Objective Data New skin coverage still fragile suggested she cover for next week. Definitely f rom shearing she should be careful Vital Signs: Vital Signs Temp Pulse Resp BP 97 F L 66 18 154/53 H 09/15/22 10:01 09/15/22 10:01 09/15/22 10:01 09/15/22 10:01 Lab / Micro Data Attestation: I reviewed the patient's lab results. Physical Exam Const oriented x3 General Appearance: cooperative Exam Limitations: no limitations HEENT normocephalic Eyes PERRL Neck full ROM Resp normal respiratory effort Effort and Inspection: able to speak in complete sentences Auscultation: clear to auscultation bilaterally Cardio regular rate and regular rhythm Palpation: normal PMI Rate: regular rate Rhythm: regular rhythm GI Auscultation: normoactive bowel sounds Palpation: soft and no hepatosplenomegaly Back/Spine Thoracic Spine / Upper Back: normal to inspection Lumbar Spine / Lower Back: normal to inspection Pelvis: buttocks abnormal left (Open wound scabbed left buttocks) left Extremity normal to inspection Skin General Skin Exam: turgor decreased; Negative for no breakdown Wounds: wounds noted Wound Narrative: Left buttocks scabbed wound with some erythema around the edge partially lifted Neuro oriented x3 Psych Appearance: grossly normal Speech: normal speech Thought Content: normal thought content Judgement: judgement good Debridement Note Debridement Note No debridement was completed: No debridement was completed today Post-Debridement Measurements and Additional Note: Post-Debridement Measurements/Treatment AURELIANO - Nurse 1 - General Ulcer Assessment Start: 09/15/22 10:01 Freq: Status: Active Protocol: AURELIANO.LUPILLO Activity Type Activity Date Activity User E-sign Co-sign Detail Recorded Client Recorded Date Recorded By Document 09/15/22 10:01 QUINTEN [id number] 09/15/22 10:02 09/15/22 10:01 - Today's Visit Information Type of service Follow-up Visit (Physician/PUBLIC INFORMATION DIRECTOR ) Arrival Mode Ambulatory Transfer Assistance None Patient Identification Verified (Name & Yes ) Patient Requires Transmission-Based No Precautions Vital Signs Temperature (97.8 F-99.1 F) 97 F L Temperature Source Temporal Pulse Rate (60-100) 66 Pulse Location Monitor Respiratory Rate (12-18) 18 Respiratory rate source Observation Blood Pressure (90/60-120/80) 154/53 H Blood Pressure Mean (mm Hg) 86 Source Monitor Position Semi-Fowlers Blood Pressure Location Left Arm History Since Last Visit- (Skip if this is Patient's initial visit) Have you changed medications since your No last visit? Any new allergies or adverse reactions No Had a fall/change in ADL's that may No increase risk of falls Signs or symptoms of abuse and/or No neglect since last visit Have you been in the hospital since your No last visit? Has dressing in place as prescribed Yes Has compression in place as prescribed No Has offloadiing in place as prescribed No Experienced any changes in pain level or No management Pain Scale: 0-10 Numeric Is Patient Pain Free? Yes - Nurse 1 - General Ulcer Measurement Start: 09/15/22 10:01 Freq: Status: Active Protocol: Activity Type Activity Date Activity User E-sign Co-sign Detail Recorded Client Recorded Date Recorded By Document 09/15/22 10:01 QUINTEN [id number] 09/15/22 10:02 QUINTEN 09/15/22 10:01 Wound Center Nurse 1 1. L buttock -Combined with other wound No -Current Size (cm) - Length 0.1 -Current Size (cm) - Width 0.1 -Current Size (cm) - Depth 0.1 -Total Square Cm 0.01 -Photo Taken Yes -Tunneling No -Undermining/Tunneling No -Circular Undermining No -Exudate Amt Medium -Exudate Type Serosanguineous -Wound Margin Distinct, Outline Attached -Granulation Amt Medium (34-66%) -Granulation Quality [place] -Slough/Fibrin Yes -Necrosis Amt Medium (34-66%) -Necrotic Tissue Type Adherent Slough -Structure Exposed N/A -Texture (Megan-wound Skin Appearance) Assessed -Moisture (Megan-wound Skin Appearance) Assessed -Color (Megan-wound Skin Appearance) Assessed -Temperature (Megan-wound Skin No Abnormality Appearance) (Pt Warm) -Tenderness on Palpation (Megan-wound No Skin Appearance) -Foul Odor after Cleansing No -Anesthetic Used 5% Lidocaine Gel WC - Nurse 2 - General Ulcer CM Notes Start: 09/15/22 10:01 Freq: Status: Active Protocol: Activity Type Activity Date Activity User E-sign Co-sign Detail Recorded Client Recorded Date Recorded By Document 09/15/22 10:16 MW [id number] 09/15/22 10:18 MW 09/15/22 10:16 Wound Center Nurse 2 -Time 10:17 -Correct Patient Yes -Correct Side, Site, Position Yes -Correct Procedure Yes -Procedure Performed No -Post Debridement (cm) - Length 0 -Post Debridement (cm) - Width 0 -Post Debridement (cm) - Depth 0 -Total Square (Post) (cm) 0 -Tunneling No -Undermining/Tunneling No -Circular Undermining No -Wound/Ulcer Outcome Not Healed -Ulcer Cleansing Rinsed/ Irrigated with Saline -Foul Odor after Cleansing No -Bioengineered Tissue No -Bleeding Controlled with NA -Treatment Response Procedure Tolerated Well -Offloading No Pain Scale: 0-10 Numeric Is Patient Pain Free? Yes - Nurse 3 - General Ulcer D/C NN Start: 09/15/22 10:01 Freq: Status: Active Protocol: Activity Type Activity Date Activity User E-sign Co-sign Detail Recorded Client Recorded Date Recorded By Document 09/15/22 10:18 MW [id number] 09/15/22 10:20 MW 09/15/22 10:18 Wound Care Center Nurse 3 Treatment Response Procedure Tolerated Well Pain Scale: 0-10 Numeric Is Patient Pain Free? Yes Teaching: Wound Center Discharge Instructions -Person Taught Patient -Teaching Method Discussion -Response to teaching Verbalize understanding WC - Visit Discharge Discharge Condition Stable Ambulatory Status Ambulatory,Cane Transportation Private Auto Accompanied by self Medication Reconcilliation completed & No provided to patient/care provider Clinical Summary of Care Provided Yes Assessment/Plan Assessment/Plan (1) Decubitus ulcer of left buttock, stage 2: CODE(S): L89.322 - Pressure ulcer of left buttock, stage 2 PLAN: Discharge from the wound center follow-up as needed May pad and protect for the next week on the fragile new skin (2) Skin turgor poor: CODE(S): R23.8 - Other skin changes
== END 2022-10-13 23:59 | disposition home or self-care (01) ==
LOC: WC 09:26
PROVIDERS: PCP Student in an Organized Health Care Education/Training Program; Referring Provider Student in an Organized Health Care Education/Training Program; Visit Provider Nurse Practitioner
DX: L89.322 Pressure ulcer of left buttock, stage 2 (principal); R23.8 Other skin changes
CPT/HCPCS: 99213; G0463

== ENCOUNTER → 2023-03-30 | Outpatient (CLI) | payer MEDICARE, OTHER, SELFPAY ==
--- NOTE | 2023-03-30 10:21 | MRI_ITS ---
EXAM: MR ABDOMEN WITHOUT AND WITH INTRAVENOUS CONTRAST CLINICAL INDICATION: CHOLECYSTITIS, ruq pain x3wks, previous CT and MRI 02/2023, attention liver -- -- no prior CT images, only report per [facility] TECHNIQUE: Multiplanar and multisequence MR images of the abdomen without and with intravenous contrast. CONTRAST: IV Yes YES COMPARISON: MR Abdomen dated 03/08/2023 FINDINGS: LOWER THORAX: Normal. No pleural effusion. LIVER: Normal. Normal morphology. No focal mass. GALLBLADDER AND BILE DUCTS: Gallbladder is not well evaluated due to significant artifacts on the T2 images. The signal dropout within the gallbladder lumen consistent with multiple stones. Common bile duct is also not well evaluated. PANCREAS: Normal. No focal cystic or solid mass. SPLEEN: Normal. Normal size without focal cystic or solid mass. ADRENALS: Normal. No nodules. KIDNEYS AND URETERS: 12 mm nonenhancing lesion in the upper pole right kidney consistent with a cyst. Normal renal size and position. STOMACH AND BOWEL: 3.6 cm duodenal diverticulum again seen. INTRAPERITONEAL SPACE: Normal. No ascites or other fluid collection. No free air. VASCULATURE: Flow artifact noted within the anterior segment of the right lobe portal vein consistent with thrombus as previously seen. Corresponding hepatic intensity changes within the right lobe. Abdominal aorta is non-dilated. LYMPH NODES: No enlarged lymph nodes. MRI/MRI Abd WITH and W/O Contrast IMPRESSION: 1. Suboptimal exam due to motion artifacts. 2. Persistent findings of multiple small gallstones. 3. 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 4. 3.6 cm duodenal diverticulum. Electronically Signed: Greg Fleming MD at 15:04 EST ,
[2023-03-30 10:40] LABS: EGFR FINGERSTICK > 60.0000 mL/min (>60)
== END | disposition home or self-care (01) ==
LOC: MRI 10:04
PROVIDERS: PCP Student in an Organized Health Care Education/Training Program
DX: K81.9 Cholecystitis, unspecified (principal)
CPT/HCPCS: 74183; A9575; A4216

== ENCOUNTER → 2024-01-12 | Outpatient (CLI) | payer MEDICARE, OTHER, SELFPAY ==
[2024-01-12] MEDS: Lidocaine 2% (5ml sdv) 5 ML VIAL.MPF INFILT (13:25)
[2024-01-12] MEDS: Lidocaine 1% (5 ml sdv) 5 ML Vial 4 ML OPERA.SITE (13:28)
[2024-01-12] MEDS: Betamethasone/Betamethasone 30 MG/5 ML Vial 12 MG INTRAARTIC (13:28)
--- NOTE | 2024-01-12 14:32 | PCM.OP.PRO ---
Procedure Report Date of Procedure: 01/12/24 Assessment & Plan Assessment/Plan (1) Adhesive capsulitis of left shoulder: PLAN: PROCEDURE: Fluoroscopic Guided left shoulder injection ORDERING PROVIDER: Dr. Paul Harding INDICATION: Female, 68 years old. Adhesive capsulitis of left shoulder. FLUOROSCOPY TIME (if supplied): 0 minutes/41 seconds. 4.9 mGy PROVIDER: RUPINDER Benjamin PROCEDURE: CONSENT: The risks, benefits, and alternatives to the procedure were explained to the patient. The specific risks of bleeding, infection, and neurovascular injury were detailed and accepted. Witnessed informed consent was obtained. TECHNIQUE: The [ ] access site was prepped and draped in sterile fashion. [ ]% Lidocaine was administered subcutaneously for local anesthesia. A 22-gauge spinal needle was positioned under radiographic fluoroscopic localization. Approximately 2 cc of Isovue 300 instilled for localization purposes. Medication was then injected. MEDICATIONS: 12 mg of betamethasone and 4 ml of 1% lidocaine. The spinal needle was removed, and a dressing was applied. The patient tolerated the procedure well without any immediate complications. IMPRESSION: Successful fluoroscopic guided left shoulder injection. Procedures Radiology Radiology Xray Procedures: [id number] Inj Asp major Joint - Hip, Knee Multi Select Codes Radiology Rad Xray Procedures: [id number] Fluoroscopic guidance for needle placement
== END | disposition home or self-care (01) ==
LOC: RAD 12:54
PROVIDERS: PCP Student in an Organized Health Care Education/Training Program; Referring Provider Specialist; Visit Provider Specialist
DX: M19.012 Primary osteoarthritis, left shoulder (principal); M75.02 Adhesive capsulitis of left shoulder
CPT/HCPCS: 20610; 77002; J0702

== ENCOUNTER → 2024-01-27 | Outpatient (CLI) | payer MEDICARE, OTHER, SELFPAY ==
[2024-01-27 19:04] LABS: Free T3 2.3 pg/mL (2.18-3.98)
== END | disposition home or self-care (01) ==
LOC: MTLAB 14:05
PROVIDERS: PCP Student in an Organized Health Care Education/Training Program; Referring Provider Student in an Organized Health Care Education/Training Program; Visit Provider Student in an Organized Health Care Education/Training Program
DX: R89.9 Unspecified abnormal finding in specimens from other organs, systems and tissues (principal)
CPT/HCPCS: 36415; 84439; 84443; 84481

== ENCOUNTER 2024-03-13 05:54 | Day surgery (SDC) | payer MEDICARE, OTHER, SELFPAY ==
--- NOTE | 2024-03-06 13:08 | EKG12_ITS ---
Test Reason : PREOP Blood Pressure : / mmHG Vent. Rate : 054 BPM Atrial Rate : 054 BPM P-R Int : 148 ms QRS Dur : 076 ms QT Int : 458 ms P-R-T Axes : 014 -09 -01 degrees QTc Int : 434 ms Sinus bradycardia Possible Inferior infarct , age undetermined Abnormal ECG Confirmed by CHELO DE JESUS, LINDA ([id number]), editorial intern CRYS GRACE ([id number]) on 03/07/2024 10:14:23 AM Referred By: Scott Ramírez Confirmed By:LINDA WHITNEY MD
[2024-03-06 15:13] LABS: Anion Gap 6 (5-15); BUN 16 mg/dL (7-18); BUN/Creat Ratio 16.7 RATIO (10-20); Calcium,Total 8.6 mg/dL (8.5-10.1); Chloride 111 mmol/L (98-107); Creatinine, Serum 0.96 mg/dL (0.55-1.02); EST Glomerular Filtration Rate 61 mL/min (>60); Est Glom Filt Rate - Afr Amer 74 mL/min (>60); Glucose 76 mg/dL (74-106); Sodium Level 142 mmol/L (136-145)
[2024-03-13] VITALS (12 sets, daily range): BP systolic 112–137; BP diastolic 55–72; PULSE 63–88; RESP 16–20; TEMP 36.6–37.1; O2SAT 91–95; BMI 44.1
--- NOTE | 2024-03-13 | IMM_PTH ---
PATIENT: BRENNA JIN LOC: [facility] U#:[id number] AGE/SX: 68/F ROOM: RE03/13/[address]: Dr. Scott Ramírez MD : 1955 BED: DIS: 03/13/2024 SPEC #: [id number] RECD: 03/15/24 13:30 STATUS: SANDRO REQ #: [id number] ASIM: 03/13/24 00:[address]: Scott Ramírez DEPT: IMMUNOHISTOCHEMISTRY RECD BY: Nikita Lauren ENTERED: 03/15/24 13:30 SP TYPE: IMMUNO OTHR DR: MD Dr. Scott Lopes DO Tissues: Thyroid gland, NOS Procedures: HBME (initial) CD56 (add) CK19 (add) GAL-3 (add) PHYSICIAN & INSTITUTION [place] [id number] SPECIMEN INFORMATION: Tissue Source: Left thyroid lobe and isthmus Clinical Info: Thyroid nodule Specimen Number: [id number] CPT code: 01507,[id number] METHODOLOGY: Deparaffinized sections of prefer/formalin-fixed tissue or PAP/DQ stained slides are incubated with monoclonal/polyclonal antibodies/oligonucleotide probes. Localization is made via biotin free immunoperoxidase method. Appropriate controls are performed and reacted as expected. Results on target cell population are indicated in the following table: RESULTS: ANTIBODY / CLONE RESULT Block 4 HBME1 (HBME-1) negative CK19 (A53-B/A2.26) positive, focal GAL3 (9C4) negative CD56 (123C3.D5) positive Block 7 HBME1 (HBME-1) negative CK19 (A53-B/A2.26) positive GAL3 (9C4) negative CD56 (123C3.D5) positive These tests were developed and their performance characteristics determined by [facility]. They may not have been cleared or approved by the U.S. Food and Drug Administration. The FDA has determined that such clearance or approval is not necessary. The above immunohistochemical/dualISH markers are ordered and reviewed by the Pathologist. INTERPRETATION: Left thyroid lobe and isthmus, thyroidectomy: Follicular adenomas x2. OVI. 03/16/2024
[2024-03-13] MEDS: Lactated Ringers 1,000 ML 15 ML IV (06:52)
--- NOTE | 2024-03-13 07:15 | PCM.PRE.AN2 ---
ASA Classification* ASA Classification ASA Classification: 3 Assessment & Plan Anesthesia* Anesthesia Assessment Anesthesia Assessment: Discussed sedation and/or anesthesia options, risks, benefits, and alternatives with patient/parents/legal guardian/POA. Questions invited. The patient/parents/legal guardian/POA seems to understand and agrees to proceed with anesthesia plan. Reviewed the physical assessment, medical history, allergy history and patient home medications list prior to surgery/procedure/anesthetic and documented any changes. Performed airway and anesthesia risk assessments. Anesthesia Type Anesthesia Type: General (SEE WRITTEN PRE ANESTHESIA RECORD FOR FULL ASSESSMENT) Anesthesia Focused Assessment* Temperature: 98.1 F Pulse Rate: 63 Blood Pressure: 112/65 Respiratory Rate: 16 Pulse Ox: 94 Airway Assessment Mouth opens: >3 cm Mallampati Score: II Focused Labs Anesthesia Preop lab: CBC WBC 6.4 K/mm3 (4.4-11.0) 07/30/22 08:23 RBC 4.82 M/mm3 (4.2-5.4) 07/30/22 08:23 Hgb 13.3 g/dL (12.0-15.0) 07/30/22 08:23 Hct 42.9 % (37-47) 07/30/22 08:23 Plt Count 254 K/mm3 (150-450) 07/30/22 08:23 CHEMISTRY Potassium 4.0 mmol/L (3.5-5.1) 03/06/24 13:29 Sodium 142 mmol/L (136-145) 03/06/24 13:29 Magnesium 2.1 mg/dL (1.6-2.6) 03/26/20 13:08 Phosphorus 2.5 mg/dL (2.5-4.9) 03/26/20 13:08 BUN 16 mg/dL (7-18) 03/06/24 13:29 Creatinine 0.96 mg/dL (0.55-1.02) 03/06/24 13:29 Glucose 76 mg/dL (74-106) 03/06/24 13:29 TSH 1.490 uIU/mL (0.358-3.740) 01/27/24 14:16 COAG Pre-Assessment Diagnosis/Proposed Procedure Planned Operative Procedure(s): (L) Left Thyroidectomy w/isthmus & IONM Anesthesia History Anesthesia History - human resources benefits assistant: Anesthesia History - human resources benefits assistant Hx Hospitalization Yes 02/29/24 13:32 Any Problems With Anesthesia Yes: HARD TIME MAINTAINING 02/29/24 13:32 O2 SAT W/ LAP HETAL Cholinesterase deficiency No 02/29/24 13:32 You/Your Family Experience No 02/29/24 13:32 fever (hyperthermia) with Relationship Recent Exposure to Contagious No 03/13/24 06:26 Disease Does patient have nerve No 02/29/24 13:32 stimulator Patient instructed to have device shut off --Does patient have Pacemaker No 03/13/24 06:36 or ICD? When Was Last Pacemaker Check QUESTION #4 FULL TEXT: You/Your Family Experience fever (hyperthermia) with Anesthesia Last Oral Intake Last Oral intake: Last Oral Intake NPO since 00:00 03/13/24 06:36 Meds taken in AM with sips of water? Meds patient instructed to take am of surgery PONV PONV - human resources benefits assistant: PONV - human resources benefits assistant Female Yes 02/29/24 13:32 HX of Motion Sickness Yes 02/29/24 13:32 HX of N/V After Surgery No 02/29/24 13:32 Non-Smoker Yes 02/29/24 13:32 Duration of Surgery greater Yes 02/29/24 13:32 than 60 minutes Number of Risk Factors 4 02/29/24 13:32 PONV Score Severe Risk 02/29/24 13:32 Height & Weight Height & Weight: Anesthesia: Height & Weight Height 5 ft 2 in 03/13/24 06:36 Weight: 109.5 kg 03/13/24 06:36 Body Mass Index (BMI) 44.1 03/13/24 06:36 Respiratory Assessment Respiratory Assessment - human resources benefits assistant: Respiratory Tract Infection Hx - human resources benefits assistant Hx Respiratory Tract Infection No 02/29/24 13:32 STOP Sleep Apnea STOP Sleep Apnea - human resources benefits assistant: STOP Sleep Apnea - human resources benefits assistant Hx Hypertension No 02/29/24 13:32 Hx Sleep Apnea Yes: CPAP 2011 02/29/24 13:32 CPAP Yes 02/29/24 13:32 BIPAP No 02/29/24 13:32 Do you snore loudly (louder than talking or can be heard Do you often feel tired/ fatigued/ sleepy during daytime? Has anyone observed you stop breathing during sleep? STOP Results Positive 02/29/24 13:32 QUESTION #5 FULL TEXT : Do you snore loudly (louder than talking or can be heard through closed doors)? Tobacco Use History Tobacco Use History - human resources benefits assistant: Tobacco Use History - human resources benefits assistant Tobacco Use Smoking Status Never smoker 02/29/24 13:32 Hx Tobacco Use No 02/29/24 13:32 Years Smoking Packs Smoked per Day Smoking Cessation Date was within the last 15 years Hx Smoking Cessation Date Hx Smoking Cessation Counseling Hematologic Medial History Hematologic Hx - human resources benefits assistant: Hematologic Medical Hx - produce manager Hx of Blood Transfusion No 02/29/24 13:32 Hx of Transfusion in last 3 No 02/29/24 13:32 Months Date of Last Transfusion (if within last 3 months) Ever experience any problems No 02/29/24 13:32 with transfusion(s)? Specify any problems Hx of Preganancy in last 3 No 02/29/24 13:32 Months Nurse Filling Out Transfusion VCHRISTIN 02/29/24 13:32 & Questions: Date: 02/29/24 02/29/24 13:32 Time: 13:34 02/29/24 13:32 Patient unable to answer at this time (ie. confused, unrespo /Reproduction History /Reproductive History - human resources benefits assistant: /Reproductive Hx- human resources benefits assistant Hx Now Gestational Age (in weeks): EDC: Hx Hx Para Hx Section SAB Active Medications Active Medications: Current Medications Generic Name Dose Route Start Last Admin Trade Name Freq PRN Reason Stop Dose Admin Lactated Ringer's 1,000 mls @ 15 mls/hr 03/13/24 07:00 03/13/24 06:52 IV 03/18/24 20:19 15 mls/hr .Q48H MONTY Administration Protocol PFSH Medical History Wears glasses Post-menopausal Anxiety History of steroid therapy High cholesterol DVT (deep venous thrombosis) History of hiatal hernia Gastric reflux Former smoker BiPAP (biphasic positive airway pressure) dependence History of edema Hypertension History of stress test Depression Sleep apnea Arthritis Thyroid disease Home Medications ?Medication ?Instructions ?Recorded ?Last Taken ?Type amlodipine 10 mg tablet 10 mg PO QDAY 02/15/24 03/12/24 History atorvastatin 40 mg tablet 40 mg PO QDAY 02/15/24 03/12/24 History cetirizine 10 mg tablet 10 mg PO QAM 02/15/24 03/12/24 History cholecalciferol (vitamin D3) 50 50 mcg PO QDAY 02/15/24 03/12/24 History mcg (2,000 unit) tablet furosemide 40 mg tablet 40 mg PO QDAY 02/15/24 03/12/24 History loperamide 2 mg capsule 2 mg PO PRN 02/15/24 Unknown History metoprolol succinate 50 mg 50 mg PO QDAY 02/15/24 03/12/24 History tablet,extended release 24 hr pantoprazole 40 mg tablet,delayed 40 mg PO QDAY 02/15/24 03/12/24 History release calcium 600 mg (as 1 tab PO DAILY 02/29/24 03/12/24 History carbonate)-vitamin D3 5 mcg (200 unit) tablet (Calcium 600 + D(3)) escitalopram oxalate 20 mg tablet 20 mg PO QHS 02/29/24 03/12/24 History multivitamin (Daily Multi-Vitamin 1 tab PO DAILY 02/29/24 03/12/24 History tablet) Allergy/AdvReac Type Severity Reaction Status Date / Time adhesive tape Allergy Rash Verified 02/29/24 13:16 hydrocodone (From Vicodin) AdvReac Vomiting Verified 02/29/24 13:16 Surgical History Hx of surgical procedure Hx of umbilical hernia repair History of right hip replacement History of bilateral knee replacement Hx of cholecystectomy Hx of cataract extraction Social History Smoking Status: Never smoker alcohol intake: current alcohol intake frequency: holidays/special occasions only substance use type: does not use Review of Systems (Anesthesia) ROS Narrative System reviewed and no additional complaints, except as documented.
--- NOTE | 2024-03-13 07:17 | HP.PCM_ITS ---
History and Physical Date of Admission: 03/13/24 Date of Service: 02/15/24 MR#: [id number] Acct: [id number] Name: BRENNA LOPEZ Rep #: [id number] : 1955 Provider: Dr. Scott Ramírez MD Age/Sex: 68/F Location: [facility] Status: Signed Intake Vital Signs 02/14/2413:46 Height 5 ft 2 in Weight: 240 lb 6 oz BMI 43.9 BP 125/71 H Blood Pressure Location Rt brachial Position Sitting Respiration 18 Pulse 65 Pulse Source Monitor Temp 97.5 F L Temp Source Temporal Pulse Oximetry (%) 94 Oxygen Delivery Method room air Intake Visit Reasons: THYROID SURGERY Chief Complaint: thyroid surgery Is patient in pain?: No Allergies adhesive tape Allergy (Verified 02/15/24 13:46) Rashhydrocodone (From Vicodin) Adverse Reaction (Verified 02/15/24 13:46) Vomiting Medications ?Medication ?Instructions ?Recorded ?Confirmed ?Type Super Collagen Plus C 2 cap PO QHS SUPPLEMENT 02/27/18 02/15/24 History glucosamine OCv-[id number]-[id number] 2 ea PO QHS SUPPLEMENT 02/27/18 02/15/24 History ashley 1,500 mg-400 unit-100 mg tablet (Glucosamine Daily Complex) amlodipine 10 mg tablet 10 mg PO QDAY 02/15/24 02/15/24 History atorvastatin 40 mg tablet 40 mg PO QDAY 02/15/24 02/15/24 History cetirizine 10 mg tablet 10 mg PO QAM 02/15/24 02/15/24 History cholecalciferol (vitamin D3) 50 50 mcg PO QDAY 02/15/24 02/15/24 History mcg (2,000 unit) tablet furosemide 40 mg tablet 40 mg PO QDAY 02/15/24 02/15/24 History loperamide 2 mg capsule mg PO 02/15/24 02/15/24 History metoprolol succinate 50 mg 50 mg PO QDAY 02/15/24 02/15/24 History tablet,extended release 24 hr pantoprazole 40 mg tablet,delayed 40 mg PO QDAY 02/15/24 02/15/24 History release Have you fallen in the past year?: No [facility] Medical History (Updated 02/16/24 @ 19:[address] Scott Ramírez MD) Depression Sleep apnea Arthritis Thyroid disease Surgical History (Updated 02/15/24 @ 13:44 by Danette Jaramillo LPN) History of right hip replacement History of bilateral knee replacement Hx of cholecystectomy Hx of cataract extraction Social History (Updated 02/15/24 @ 13:45 by Danette Jaramillo LPN) Smoking Status: Never smoker alcohol intake: current alcohol intake frequency: holidays/special occasions only substance use type: does not use HPI HPI HPI: Patient is a 68-year-old female who presents for surgical consultation related to recently biopsied left thyroid nodule that was consistent with follicular neoplasm. They are referred for surgical consultation from Dr. Dickson. This was discovered incidentally during CT screening for lung nodularity with patient's history of prior smoking. A left-sided thyroid nodule was noted at 1.5 cm and follow-up ultrasound was recommended. This follow-up study was completed as well as a FNA biopsy by Dr. Kebede which resulted as a consistent with follicular neoplasm diagnosis. The specimen was sent on for a firm a diagnosis which returned as benign. They do not experience difficulty with swallowing. They do not complain of a new cough. They do not appreciate new voice changes. They do have a history of snoring/sleep apnea, but confirmed faithful use of their CPAP. Additionally, their weight has been steadily increasing and they attribute this to decreased activity with recent hip replacements. There is no history of recent fatigue. They do not have a history of [heat or cold] intolerance. Other symptoms include:[ ]. They do not have a family history of thyroid disorders or endocrinopathies. There is no history of prior radiation exposure. Previous work-up has included thyroid ultrasound. This study was performed on 01/13/2024 and showed a right thyroid lobe measuring 4.5 x 1.8 x 1.5 cm. Within this lobe radiology identified a nodule measuring less than 1 cm in dimension was rated TI-RADS 4. The left thyroid lobe measured 4.3 x 1.7 x 0.7 cm. Within this lobe radiology identified a nodule measuring 1.1 x 1.0 x 0.8 cm within the midportion of the lobe with a solid appearance and very hypoechoic echogenicity demonstrating lobulated margins for a total TI-RADS rating of 5. 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 Other tests include: TSH: 1.49, free T40.9, free T3: 2.3 (01/27/2024) ROS General General: No weight change, appetite, fatigue, colon cancer, breast cancer or weakness HEENT HEENT: Yes eye surgery; No difficulty swallowing, eye injury, swollen glands or hoarseness Endo Endocrine: Yes thyroid disease; No diabetes mellitus, thyroid cancer, Hair loss, heat intolerance or cold intolerance Skin Skin: No rash or changing moles Musc Musculoskeletal: Yes arthritis; No back problems, rheumatoid arthritis, gout or joint pain Cardio Cardiovascular: Yes high blood pressure; No murmur, pacemaker, heart disease, atrial fibrillation, heart attack, heart stent, palpitations, shortness of breat with exertion or chest pain Psych Psychiatric: Yes depression; No anxiety or hearing voices Resp Respiratory: No shortness of breath, Yes sleep apnea, No cough, No COPD, No asthma, No emphysema and No wheezing Gastro Gastrointestinal: No abdominal pain, No nausea or vomiting, No diarrhea, No constipation, No blood in stool, No acid reflux, No hemorrhoids, No ulcers, No gallbladder problem and No black,tarry stools Grant Hematologic: No blood thinners, No blood disorders, No bleeding, No anemia and No blood clots Neuro Neurologic: No numbness, No tingling and No weakness Exam Const General: cooperative and comfortable Orientation: alert, awake and oriented x3 Neck Other: Supple, nontender, no discrete lymphadenopathy Assessment and Plan Assessment and Plan (1) Thyroid nodule: Status: Acute Comment: Patient is 68-year-old female, euthyroid from an endocrine standpoint, who meets for surgical consultation related to an incidentally diagnosed left thyroid nodule that is biopsied and consistent with a follicular neoplasm by cytopathology but benign by next generation genetic sequencing (Afirma). I held a lengthy conversation first with Mrs. Lopez alone and then we were later joined by her via telephone regarding her diagnosis and treatment recommendations. 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 I shared the challenges around follicular lesion diagnosis before final pathology. I discussed the pros and cons around thyroid lobectomy versus total thyroidectomy?especially as they relate to oncologic resections and thyroid cancer surveillance?should it be ultimately diagnosed. I also addressed the thyroid surgery?specific risks around recurrent laryngeal nerve injury and hypoparathyroidism. I shared my use of loupe magnification and intraoperative nerve monitoring to significantly limit these risks. Patient and her had opportunity ask questions and express appreciation for the information. Plan: ? Outpatient Left thyroid lobectomy with isthmusectomy and intraoperative nerve monitoring I have examined the patient and the H&P has been reviewed. There are no clinical changes since date of exam. A brief overview of the operative and postoperative recovery expectations as provided. Patient and her spouse were given opportunity to ask all remaining questions. Will now proceed to the operating room for left thyroid lobectomy with isthmusectomy using intraoperative nerve monitoring.
--- NOTE | 2024-03-13 07:30 | THYROID_PTH ---
PATIENT: BRENNA JIN LOC: [facility] [place] U#:[id number] AGE/SX: 68/F ROOM: RE03/13/[address]: Dr. Scott Ramírez MD : 1955 BED: DIS: 03/13/2024 SPEC #: [id number] RECD: 03/13/24 10:25 STATUS: SANDRO STAPLES #: [id number] ASIM: 03/13/24 07:[address]: Scott Ramírez DEPT: SURGICAL PATHOLOGY RECD BY: Vadim Jasso ENTERED: 03/13/24 11:14 SP TYPE: THYROID OTHR DR: MD Dr. Scott oLpes DO Tissues: Thyroid gland, NOS Procedures: Surgery Specimen Level V HEADER OPERATION: Left thyroidectomy with isthmus and IONM PRE-OP DIAGNOSIS: Thyroid nodule TISSUE SUBMITTED: Left thyroid lobe and isthmus *stitch viveros left superior pole* MICROSCOPIC DIAGNOSIS Left thyroid lobe and isthmus, lobectomy and isthmectomy: Follicular adenomas x2. Multinodular goiter. See comment. 03/15/2024 COMMENT Immunohistochemistry ([id number]) supports the above diagnosis. This case has been reviewed in consultation with Dr. Velázquez who concurs with the above diagnosis. IDC:PW MICROSCOPIC DESCRIPTION Slides are reviewed. GROSS DESCRIPTION Received in fixative is one container labeled with the patient's name and designated Left thyroid lobe and isthmus. The specimen consists of thyroid lobe and isthmus weighing 9.2gm. Left thyroid lobe measures 4.5 x 3.0 x 2.0cm. Isthmus measures 1.0 x 0.7 x 0.3cm. The specimen is inked as follows: anterior surface- blue, posterior surface-black, isthmic resection margin- yellow. Sections reveal two nodules, one in the upper portion of the thyroid lobe measuring 1.6 x 1.7 x 1.0cm and second nodule in the middle portion of the thyroid lobe measuring 1.6 x 1.2 x 1.0cm. The entire specimen is submitted in ten cassettes as follows: 1- isthmus, 2-10- left thyroid lobe (cassette 2 containing most superior portion and 10 containing most inferior portion). 03/14/2024 TC:1 CPT:33389
[2024-03-13] MEDS: Bupivacaine 0.25% 30 ML Vial (10:01)
--- NOTE | 2024-03-13 10:13 | OP.PCM_ITS ---
Operative Report (Standard) Operative Information Surgery/Procedure Performed: Left thyroid lobectomy with isthmusectomy using intraoperative nerve monitoring Surgeon: Scott Ramírez Date of Procedure: 03/13/24 Procedure Start Time: :08 Procedure Stop Time: 10:10 Pre-Operative Diagnosis: Left thyroid nodule suspicious for follicular neoplasm Post-Operative Diagnosis: Same Select all DRAINS/GRAFTS/IMPLANTS that apply: None Type of Anesthesia: General/Supplemental Estimated Blood Loss: 25 Specimen collected: Yes Description of specimen(s) removed: Left thyroid lobe and isthmus Description of surgery: After appropriate identification in the preoperative holding area, the patient was brought to the operating room where she was positioned supine on the operating room table. Induction of general endotracheal anesthetic was begun and a NIMS tube was placed under glidescope view to confirm coaptation with the vocal cords anteriorly. Tube was then secured and the patient was positioned with a shoulder roll so that her head was in extension but supported. The Nims electrodes were placed and connected to the monitor. We had appropriate resistance showing on the monitor and tapping at the level of the cricoid produce a graphical representation of the impulse on the monitor. Patient's neck was then prepped and draped in usual sterile fashion and a formal timeout was conducted from those present. The lowest skin fold to the sternal notch was selected for incision site (this resided approximately 2 fingerbreadths cephalad to the notch). An incision was extended for 2.5 cm on either side of midline. Electrocautery was used to deepen this incision through the level of the platysma. Subplatysmal flaps were raised with the use of electrocautery and blunt dissection. It became immediately apparent that patient had a crossing a nterior jugular vein that was severely engorged. Since this crossed the median raphe I proceeded with dissecting it circumferentially, applying silk ligatures bilaterally and then divided the vein with LigaSure energy. The strap muscles were then divided along the medial raphe bringing us down to the level of the thyroid. Capsular attachments to the thyroid were divided with the use of LigaSure or bluntly swept away (there was notably some more dense adhesion to the overlying strap muscles in the region of the superior pole then typically encountered). Retractors were placed providing visualization of the left superior pole of the thyroid. The vessels of the superior pole were sequentially ligated with the use of the LigaSure device. As we moved towards the thyroid gland away from the pole vessels, we or careful to identify the superior parathyroid gland and preserve its vascular pedicle. We then moved inferiorly and divided those polar vessels with LigaSure. The inferior parath yroid gland was grossly visualized adjacent to the inferior thyroid artery and preserved with this division. With the poles freed the thyroid was mobilized medially. I bluntly the remaining strap muscle fibers from the thyroid capsule and using blunt dissection parallel to the presumed course of the recurrent laryngeal nerve, exposed the tracheoesophageal groove. Here I visualized the nerve and was able to confirm a good signal in the Nims monitor. The nerve positively identified, I relieved the attachments of the thyroid gland to the underlying trachea with the use of LigaSure. As we again approached the nerve insertion of the cricothyroid membrane, I attempted to get a signal in the Nims monitor but this time no signal was detected. I then dissected the course of the nerve distally until it inserted in the trachea. Still, no signal was detected but there was no visible interruption to its course. With this result, I elected to leave a minuscule amount of thyroid tissue intact in the region of the ligament of Guerrero using 4-0 silk ligatures so as not to cause any risk for traction or thermal injury to the nerve. The area around the ligament of Guerrero was highly vascular and this process proved tedious. In the cephalad portion of the incision, I sought but did not identify a pyramidal lobe. Once I had assured clearance from the nerve, the remaining thyroid tissue was removed from the anterior surface of the trachea with electrocautery to include the entirety of the thyroid isthmus. The specimen was divided with the LigaSure device for hemostasis and was marked with a suture through the superior pole before it was passed off the field for permanent section. Pressure was applied to the surgical cavity and there was some significant bleeding within the surgical cavity that appeared to start suddenly. After ensuring all personnel were ready to address this bleeding we gradually uncovered a source as being a lacerated vein adjacent to the inferior thyroid artery and in proximity to the inferior parathyroid gland (which had been marked with a titanium clip). After assuring clearance to the nerve and parathyroid gland I used a Vicryl suture to secure this vessel in figure of eight technique. Closer to the nerve there was some additional slight oozing and Surgicel hemostatic agent was placed while pressure was applied. Once this pressure was relieved, the surgical cavity was again inspected and we found hemostasis to be intact. We also confirmed the presence of both the superior and inferior parathyroid glands. Satisfied with this resu lt, the strap muscles were closed with a running 3-0 Vicryl stitch leaving a small gap at the inferior aspect of the suture line. The platysmal flaps were closed with interrupted 3-0 Vicryl. Some additional local anesthetic was infiltrated throughout the dermis and the skin was closed in a subcuticular fashion using 4-0 Monocryl. Steri-Strips were applied. Telfa and Tegaderm were used as a dressing. The patient was then awakened from anesthetic without event and was taken to PACU for ongoing recovery. Surgical Findings: ? Inferior thyroid artery supplying inferior parathyroid swab from the inferior pole of the thyroid gland and Well-vascularized ? Well-perfused superior parathyroid gland ? Left recurrent laryngeal nerve with initial strong signal on Nims monitor but then apparent loss of signal yet visibly intact to the cricothyroid membrane ? 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
--- NOTE | 2024-03-13 10:23 | PCM.POST.ANE ---
Anesthesia: Postop Eval I Current Vital Signs Temperature: 98.8 F Pulse Rate: 88 Blood Pressure: 137/68 Respiratory Rate: 20 Pulse Ox: 94 Oxygen Delivery Method: Simple Mask Oxygen Flow Rate (L/min): 6 Assessment Airway patent: Yes Spontaneous unlabored respirations: Yes Mental status: Awake and Calm nausea: No Vomiting: No Anesthesia Complication: No Fluid Hydration Crystalloid volume administer (ml): 700 Total IV fluid infused: 700 Progress Note Anesthesia document: Postop Eval 1 completed: Yes
--- NOTE | 2024-03-13 10:56 | POSTOPAN2_ITS ---
Anesthesia Postop Eval I Sum Postop Eval Completion status Anesthesia document: Postop Eval 1 completed: Yes Anesthesia Postop Eval I Summary Anesthesia Postop Eval I Summary: Anesthesia Postop Eval I: Assessment Summary Airway patent Yes 03/13/24 10:25 [email or web address] Spontaneous unlabored Yes 03/13/24 10:25 [email or web address] respirations Mental status Awake,Calm 03/13/24 10:25 [email or web address] nausea No 03/13/24 10:25 [email or web address] Vomiting No 03/13/24 10:25 [email or web address] Anesthesia Postop Eval I: Fluid Summary Crystalloid volume administer 700 03/13/24 10:25 [email or web address] (ml) Colloids volume administered ( ml) Blood Product volume administered (ml) Total IV fluid infused 700 03/13/24 10:25 [email or web address] Anesthesia Postop Eval I: Summary Notes Anesthesia Complication No 03/13/24 10:25 [email or web address] Anesthesia Complication Comment: Post-operative progress note Anesthesia: Postop Eval II Evaluation Mental status: Awake Pain Level: 0 nausea: No Vomiting: No
--- NOTE | 2024-03-13 10:56 | PCM.POSTANE2 ---
Anesthesia Postop Eval I Sum Postop Eval Completion status Anesthesia document: Postop Eval 1 completed: Yes Anesthesia Postop Eval I Summary Anesthesia Postop Eval I Summary: Anesthesia Postop Eval I: Assessment Summary Airway patent Yes 03/13/24 10:25 APPLICATIONS SALES REPRESENTATIVE.[email or web address] Spontaneous unlabored Yes 03/13/24 10:25 APPLICATIONS SALES REPRESENTATIVE.SCHR respirations Mental status Awake,Calm 03/13/24 10:25 APPLICATIONS SALES REPRESENTATIVE.SCHR nausea No 03/13/24 10:25 APPLICATIONS SALES REPRESENTATIVE.SCHR Vomiting No 03/13/24 10:25 APPLICATIONS SALES REPRESENTATIVE.SCHR Anesthesia Postop Eval I: Fluid Summary Crystalloid volume administer 700 03/13/24 10:25 APPLICATIONS SALES REPRESENTATIVE.SCHR (ml) Colloids volume administered ( ml) Blood Product volume administered (ml) Total IV fluid infused 700 03/13/24 10:25 APPLICATIONS SALES REPRESENTATIVE.SCHR Anesthesia Postop Eval I: Summary Notes Anesthesia Complication No 03/13/24 10:25 APPLICATIONS SALES REPRESENTATIVE.SCHR Anesthesia Complication Comment: Post-operative progress note Anesthesia: Postop Eval II Evaluation Mental status: Awake Pain Level: 0 nausea: No Vomiting: No
--- NOTE | 2024-03-13 11:09 | EX.PCM.DISCH ---
Discharge Instructions Diet Discharge Diet: No restrictions (However recommend a liquid to soft diet initially postoperatively) Activity Discharge Activity: May Not Drive (While it remains difficult to check blind spots quickly) May shower in (days): 2 Ice area for (Minutes): 20 Lifting Restrictions: No lifting greater than 15 pounds for 2 weeks after surgery Additional Activity Instructions:: Please keep head elevated Dressing / Incision Call your doctor if your incision/area has: Continuous Slow Oozing, Sudden Increased Bleeding, Increased Pain/ Swelling, Increased Redness and Swelling at the incision site Call your doctor if you observe: Numbness or Tingling Remove Dressing in: 2 days (Please leave Steri-Strips intact until they fall off spontaneously or are taken off at your follow-up visit) Cleanse incision/area with: Soap & Water Follow Up Care Please Follow Up With: Scott Ramírez MD When: 7 days postop Test Results: Test results from this visit will be discussed in further detail at your follow-up appointment, if applicable. Discharge Plan Admission Primary Reason for Your Visit: Left thyroid lobectomy Attending Provider: Scott Ramírez Primary Care Provider: Scott Dickson Consulting Providers: Bhavik Ignacio Instructions Print Language: Lithuanian Discharge Orders/Prescriptions Prescriptions: No Action furosemide 40 mg tablet 40 mg PO QDAY atorvastatin 40 mg tablet 40 mg PO QDAY loperamide 2 mg capsule 2 mg PO PRN cetirizine 10 mg tablet 10 mg PO QAM metoprolol succinate 50 mg tablet extended release 24 hr 50 mg PO QDAY amlodipine 10 mg tablet 10 mg PO QDAY pantoprazole 40 mg tablet,delayed release (DR/EC) 40 mg PO QDAY cholecalciferol (vitamin D3) 50 mcg (2,000 unit) tablet 50 mcg PO QDAY escitalopram oxalate 20 mg tablet 20 mg PO QHS multivitamin [Daily Multi-Vitamin] Tablet 1 tab PO DAILY calcium carbonate-vitamin D3 [Calcium 600 + D(3)] 600 mg-5 mcg (200 unit) tablet 1 tab PO DAILY Referrals / Follow Up: Scott Dickson DO [Primary Care Provider] - Disposition Disposition (needs filled in before D/C Order can be placed): Home, Self Care
[2024-03-13] MEDS: Acetaminophen 325 MG Tablet 650 MG PO (13:35)
== END 2024-03-13 13:48 | disposition home or self-care (01) ==
LOC: SDC 05:54 → AC 05:55
PROVIDERS: Anesthesiology; PCP Student in an Organized Health Care Education/Training Program; Referring Provider Surgery; Visit Provider Surgery
PROC: (CPT 60210; principal; 2024-03-13 07:15)
DX: D34 Benign neoplasm of thyroid gland (principal); I10 Essential (primary) hypertension; F32.A Depression, unspecified; Z79.899 Other long term (current) drug therapy; Z87.891 Personal history of nicotine dependence; Z96.641 Presence of right artificial hip joint; Z96.653 Presence of artificial knee joint, bilateral
CPT/HCPCS: 60210; 00320; 36415; 80048; 88307; 88341; 88342; 93005; A4648; J7120; J2405

== ENCOUNTER → 2024-04-17 | Outpatient (CLI) | payer MEDICARE, OTHER, SELFPAY ==
[2024-04-17 15:59] LABS: Free T3 2.5 pg/mL (2.18-3.98)
== END | disposition home or self-care (01) ==
LOC: MTLAB 13:18
PROVIDERS: PCP Student in an Organized Health Care Education/Training Program; Referring Provider Surgery; Visit Provider Surgery
DX: E89.0 Postprocedural hypothyroidism (principal)
CPT/HCPCS: 36415; 84439; 84443; 84481

== ENCOUNTER → 2024-07-17 | Outpatient (CLI) | payer MEDICARE, OTHER, SELFPAY ==
[2024-07-17 12:31] LABS: Absolute Lymphocyte Count 1.61 X10^3/uL (0.83-4.51); Basophil# 0.07 X10^3/uL; Basophil% 0.8 % (0-1); Eosinophil# 0.19 X10^3/uL; Eosinophils% 2.2 % (0-5); Hematocrit 37.9 % (37-47); Hemoglobin 12.2 g/dL (12.0-15.0); Lymphocyte # 1.61 X10^3/ul (0.83-4.51); Lymphocyte % 18.8 % (19-41); Mean Corp Hgb Conc 32.2 g/dL (32-36); Mean Corpuscular Hgb 28.5 pg (27.0-32.0); Mean Corpuscular Volume 88.6 fL (81-99); Mean Platelet Vol. 11.2 fl (6.2-12.0); Monocyte# 0.66 X10^3/uL; Monocyte% 7.7 % (0-10); NRBC Flagged by Analyzer 0 % (0-5); Neutrophil # 6.03 X10^3/uL (2.7-7.7); Neutrophil % 70.3 % (47-70); Platelet Count 234 K/mm3 (150-450); RBC Distribution Width CV 14.5 % (11.6-14.6); RBC Distribution Width SD 46.5 fl (35.1-43.9); Red Blood Count 4.28 M/mm3 (4.2-5.4); White Blood Count 8.6 K/mm3 (4.4-11.0)
== END | disposition home or self-care (01) ==
LOC: LAB 12:00
PROVIDERS: PCP Student in an Organized Health Care Education/Training Program; Referring Provider Specialist; Visit Provider Specialist
DX: Z01.812 Encounter for preprocedural laboratory examination (principal); R79.9 Abnormal finding of blood chemistry, unspecified
CPT/HCPCS: 36415; 82040; 85025

== ENCOUNTER 2024-12-17 10:24 | Outpatient (CLI) | payer MEDICARE, OTHER, SELFPAY ==
[2024-12-17 13:18] LABS: Hematocrit 35.9 % (37-47); Hemoglobin 11.5 g/dL (12.0-15.0); Mean Corp Hgb Conc 32.0 g/dL (32-36); Mean Corpuscular Volume 88.2 fL (81-99); Mean Platelet Vol. 11.5 fl (6.2-12.0); Platelet Count 225 K/mm3 (150-450); RBC Distribution Width CV 15.3 % (11.6-14.6); RBC Distribution Width SD 48.8 fl (35.1-43.9); Red Blood Count 4.07 M/mm3 (4.2-5.4); White Blood Count 5.8 K/mm3 (4.4-11.0)
[2024-12-17 13:33] LABS: Creatinine, Urine (random) 101.00 mg/dL (28.00-217.00); Microalbumin,Random Urine < 12.0 mg/L (<20 mg/L); Protein, Urine (Random) 9.0 mg/dL (0.0-12.0); Protein:Creat Ratio 89 mg/g CRE (0-200)
[2024-12-17 13:38] LABS: AST(SGOT) 19 U/L (<=31); Alanine Aminotransfer ALT/SGPT 20 U/L (<=34); Albumin, Serum 3.9 g/dL (3.4-4.8); Alkaline Phosphatase 89 U/L (35-104); Anion Gap 13 (5-15); BUN 16 mg/dL (4-19); BUN/Creat Ratio 17.1 RATIO (10-20); Calcium,Total 8.7 mg/dL (7.6-11.0); Carbon Dioxide 21.6 mmol/L (21.0-32.0); Chloride 107 mmol/L (98-108); Cholesterol 135 mg/dL (<=200); Globulin 2.6 g/dL (2.2-4.2); Glucose 111 mg/dL (70-99); Low Density Lipoprotein Calc. 43 mg/dL; Potassium 4.2 mmol/L (3.3-5.1); Triglycerides 109 mg/dL; Very Low Density Lipoprotein 22 mg/dL (5-40); Vitamin B12 534 pg/mL (180-914); Vitamin D,25 Hydroxy 41.8 ng/mL (30-100); cholesterol:hdl ratio screen 1.93
[2024-12-17 13:39] LABS: PTHIN 70 pg/mL (11-61)
== END 2024-12-17 23:59 | disposition home or self-care (01) ==
LOC: MTLAB 10:26
PROVIDERS: PCP Student in an Organized Health Care Education/Training Program; Referring Provider Student in an Organized Health Care Education/Training Program; Visit Provider Student in an Organized Health Care Education/Training Program
DX: Z13.6 Encounter for screening for cardiovascular disorders (principal); N18.30 Chronic kidney disease, stage 3 unspecified; I13.10 Hypertensive heart and chronic kidney disease without heart failure, with stage 1 through stage 4 chronic kidney disease, or unspecified chronic kidney disease; R53.83 Other fatigue
CPT/HCPCS: 36415; 80053; 80061; 82043; 82306; 82570; 82607; 83036; 83970; 84156; 84439; 84443; 85027